=== PATIENT | female | born 1945 | race Caucasian/White ===

== ENCOUNTER 2019-11-12 17:53 | Inpatient (IN) | payer MEDICARE, SELFPAY ==
--- NOTE | ~2019-11-12 | CT_ITS ---
EXAMINATION: CT abdomen pelvis w con DATE: 11/12/2019 21:00 INDICATION: Abdominal pain and right groin pain TECHNIQUE: Computed tomography (CT) of the abdomen and pelvis was performed with 100 mL Omnipaque-350 intravenous contrast. Automated exposure control and iterative reconstruction technique were employe d. The dose-length product was 312.69 mGy-cm. COMPARISON: None FINDINGS: Mild emphysema as well as scattered discoid atelectasis/scarring in the bilateral lower lungs. Heart size is normal. Atherosclerotic coronary artery calcification. Small pericardial effusion. No pleural effusion. Gallbladder is dilated to 4.9 cm with prominent surrounding inflammatory stranding cyst wi th acute cholecystitis. There is some discontinuity along the enhancing mucosa of the gallbladder wal l which raises concern for necrosis. I'm and bile duct is dilated to 9 mm and there is mild central i ntrahepatic biliary ductal dilation. Dystrophic calcifications at the head of the pancreas likely seq uela of chronic pancreatitis. No peripancreatic inflammatory stranding to suggest acute pancreatitis. Spleen and bilateral adrenal glands are normal. Bilateral subcentimeter renal cysts. There is some e dematous wall thickening with the colon at the splenic flexure which is likely reactive. No bowel obs truction. The appendix is not visualized. No pericecal inflammatory change to suggest acute appendici tis. Bladder is normal. The uterus is not identified and has likely been surgically resected. Pessary at the vaginal vault. No free intraperitoneal gas or fluid. No pathologically enlarged abdominal or pelvic lymphadenopathy... There is calcified atherosclerosis of the aorta and many of the other arter ies. Moderate lumbar spondylosis. IMPRESSION: 1. Acute cholecystitis with discontinuities in the enhancing mucosa of the gallbladder wall which finley ses concern for mural necrosis. 2. Mild intra and extra hepatic biliary ductal dilation. Reviewed, dictated and finalized at location A. IMPRESSION: 1. Acute cholecystitis with discontinuities in the enhancing mucosa of the gall bladder wall which raises concern for mural necrosis. 2. Mild intra and extra hepatic biliary ductal dilation.
[2019-11-12 18:02] VITALS: BP 99/59; PULSE 67; RESP 17; TEMP 36.3; O2SAT 98
[2019-11-12 19:31] VITALS: BP 98/62; PULSE 103; RESP 14; TEMP 37.8; O2SAT 95
[2019-11-12] MEDS: SODIUM CHLORIDE 0.9% IV 1,000 ML 999 ML IV CONT (19:43)
[2019-11-12 19:48] LABS: Basophils Absolute Auto 0.1 K/mm3 (0.0-0.1); Basophils Percent Auto 0.4 % (0.2-1.2); Eosinophils Absolute Auto 0.1 K/mm3 (0-0.3); Eosinophils Percent Auto 0.8 % (0-4.4); Hematocrit 38.2 % (37.0-47.0); Hemoglobin 12.7 g/dL (12.0-15.0); Immature Granulocyte Absolute 0.08 K/mm3 (0.00-0.031); Immature Granulocyte Percent A 0.5 % (0-0.5); Lymphocytes Absolute Auto 2.35 K/mm3 (0.9-3.2); Lymphocytes Percent Auto 13.7 % (18.3-44.2); Mean Corpuscular HGB Conc 33.2 g/dl (32-36); Mean Corpuscular Hemoglobin 29.5 pg (26-34); Mean Corpuscular Volume 88.6 fl (80-100); Mean Platelet Volume 9.1 fl (7.4-10.4); Monocytes Absolute Auto 1.2 K/mm3 (0.1-0.6); Monocytes Percent Auto 7.2 % (2.6-8.5); Neutrophils Absolute Auto 13.3 K/mm3 (1.3-6.7); Neutrophils Percent Auto 77.4 % (45.5-73.1); Platelet Count Result 300 k/mm3 (150-375); Red Blood Count 4.31 M/mm3 (4.2-5.4); Red Cell Distribution Width 13.4 % (11.5-14.5); White Blood Count 17.1 K/mm3 (4.5-10.0)
[2019-11-12 20:01] LABS: Alanine Aminotransferase 18 U/L (4-35); Alkaline Phosphatase 89 U/L (38-126); Anion Gap 6 mmol/L (8-16); Aspartate Amino Transferase 26 U/L (14-36); Bilirubin,Total 0.6 mg/dL (0.2-1.3); Blood Urea Nitrogen 24 mg/dL (7-17); Calcium 9.1 mg/dL (8.4-10.2); Carbon Dioxide 28 mmol/L (22-30); Chloride 98 mmol/L (98-107); Estimated CRCL calculation 43 ml/min; Estimated Glomerular Filt Rate 54; Glucose 103 mg/dL (65-105); Potassium 3.9 mmol/L (3.4-5.0); Sodium 132 mmol/L (137-145)
[2019-11-12 20:39] LABS: Add Urine Microscopic? YES; Appearance Urine Cloudy (Clear); Bacteria Urine Trace /hpf; Bilirubin Urine Negative (Negative); Blood Urine Negative (Negative); Color Urine Yellow (Yellow); Glucose Urine UA Negative (Negative); Ketones Urine Negative (Negative); Leukocyte Esterase Ur Trace LEU/UL (Negative); Mucus Urine Heavy /lpf; Nitrate Urine Negative (Negative); Protein Urine 1+ mg/dL (Negative); RBC Urine 0-2 /hpf (0-2); Specific Grav Ur 1.017 (1.001-1.035); Squamous Epithelial Cell Urine Moderate /hpf (Few); Urobilinogen Urine Negative mg/dL (<2.0)
--- NOTE | 2019-11-12 20:47 | PC.NURSE ---
Fannie in lab aware of lipase add on.
--- NOTE | 2019-11-12 20:48 | ED.GENADULT ---
HPI - General Adult General Chief complaint: Extremity Injury, Lower Stated complaint: right groin/abd pain Time Seen by Provider: 11/12/19 19:01 Source: patient Mode of arrival: ambulatory Limitations: no limitations History of Present Illness HPI narrative: Patient is a 74-year-old female who presents to emergency department for evaluation of right-sided abdominal pain and discomfort that is been present since Friday noticed it when she got out of bed patient notes that the pain has been persistent and is worse with any activity or movement denies similar occurrence in the past or any recent illness or other complaints and is otherwise resting comfortably in the room upon arrival Related Data Allergies Allergy/AdvReac Type Severity Reaction Status Date / Time No Known Allergies Allergy Verified 11/12/19 18:05 Review of Systems Review of Systems: All systems reviewed & are unremarkable except as noted in HPI and below PMFSH Social History Social History Gender identity (if verbalized by the patient): Female Exam Narrative: Exam Narrative: GENERAL: Well-appearing, well-nourished, and in no acute distress. HEAD: Normocephalic, atraumatic. EYES: PERRLA and EOMI. ENT: Nares clear, no rhinorrhea or epistaxis. Mucous membranes moist. CHEST: Clear to auscultation. No respiratory distress. No wheezes rales or rhonchi HEART: Regular rate and rhythm. No murmur heard. Normal peripheral pulses. ABDOMEN: Soft, right-sided abdominal tenderness with voluntary guarding, nondistended EXTREMITIES: Normal range of motion. No edema. SKIN: Warm, dry, no rash. NEURO: No focal deficits. Alert and oriented x3. Cranial nerves II through XII grossly intact PSYCH: Normal mood and affect. Course Course Emergency Course: Patient in the room aware of the blood work and findings agreeing to stay in hospital as recommended was given fluids pain management and IV antibiotics Consultations Consultation #1: Discussed case with surgeon who will admit the patient Date: 11/12/19 Time: 21:41 Vital Signs Vital signs: Vital Signs Temperature 97.4 F L 11/12/19 18:02 Pulse Rate 67 11/12/19 18:02 Respiratory Rate 17 11/12/19 18:02 Blood Pressure 99/59 L 11/12/19 18:02 Pulse Oximetry 98 11/12/19 18:02 Temperature 98.6 F 11/12/19 21:34 Pulse Rate 103 H 11/12/19 19:31 Respiratory Rate 106 H 11/12/19 21:34 Blood Pressure 110/69 11/12/19 21:34 Pulse Oximetry 90 11/12/19 21:34 Medical Decision Making MDM Narrative Medical decision making narrative: Patient with acute cholecystitis in the room resting comfortably no distress pain well controlled given fluids and antibiotics agreeing to stay in hospital Vital Signs Vital Signs: Vital Signs Temperature 97.4 F L 11/12/19 18:02 Pulse Rate 67 11/12/19 18:02 Respiratory Rate 17 11/12/19 18:02 Blood Pressure 99/59 L 11/12/19 18:02 Pulse Oximetry 98 11/12/19 18:02 Temperature 98.6 F 11/12/19 21:34 Pulse Rate 103 H 11/12/19 19:31 Respiratory Rate 106 H 11/12/19 21:34 Blood Pressure 110/69 11/12/19 21:34 Pulse Oximetry 90 11/12/19 21:34 Lab Data Result diagrams: 11/12/19 19:38 11/12/19 19:38 Labs: Lab Results 11/12/19 11/12/19 11/12/19 Range/Units 19:38 19:38 19:38 WBC 17.1 H (4.5-10.0) K/mm3 RBC 4.31 (4.2-5.4) M/mm3 Hgb 12.7 (12.0-15.0) g/dL Hct 38.2 (37.0-47.0) % MCV 88.6 (80-100) fl MCH 29.5 (26-34) pg MCHC 33.2 (32-36) g/dl RDW 13.4 (11.5-14.5) % Plt Count 300 (150-375) k/mm3 MPV 9.1 (7.4-10.4) fl Immature Gran % (Auto) 0.5 (0-0.5) % Neut % (Auto) 77.4 H (45.5-73.1) % Lymph % (Auto) 13.7 L (18.3-44.2) % [place] % (Auto) 7.2 (2.6-8.5) % Eos % (Auto) 0.8 (0-4.4) % Baso % (Auto) 0.4 (0.2-1.2) % Lymph # (Auto) 2.35 (0.9-3.2) K/mm3 [place] # (Auto) 1.2 H (0.1-0.
[2019-11-12 20:56] LABS: Lipase 26 U/L (23-300)
--- NOTE | 2019-11-12 20:58 | PC.NURSE ---
Pt complains of discomfort on right side of groin that radiates to the belly butt region, rates pain a 5/10. MD notified, new orders given.
[2019-11-12 21:34] VITALS: BP 110/69; RESP 106; TEMP 37; O2SAT 90
[2019-11-12 22:47] VITALS: BP 110/69; PULSE 106; O2SAT 90
--- NOTE | 2019-11-12 22:50 | ADMGEN ---
This patient, Sandy Kaur, was admitted to 2 Medical Room 242-01 @ 7550. Patient/family oriented to hospital policies and general routines including ID bracelet, bed and alarms, visiting hours, pain management, procedures, bathroom and other care routines, personal items, smoking policy, room service/diet, and visiting hours. Valuables list has been completed. Information on how to activate the Rapid Response Team has been discussed. Patient/Family are encouraged to report perceived risks to care and to ask questions if they do not understand what they are told or what they should do.
[2019-11-12 22:57] VITALS: BP 103/58; PULSE 97; RESP 20; TEMP 35.9; O2SAT 97
[2019-11-12 22:58] VITALS: BMI 22.5
[2019-11-12] MEDS: LACTATED RINGERS 1,000 ML 125 ML IV CONT (23:27)
[2019-11-12] MEDS: FAMOTIDINE 20 MG/2 ML VIAL IV PUSH (23:27)
[2019-11-13] MEDS: MORPHINE SULFATE 4 MG/ML INJ IV PUSH ×2 (03:42→16:37)
[2019-11-13 04:00] VITALS: BP 135/65; PULSE 110; RESP 20; TEMP 36.6; O2SAT 98
[2019-11-13 05:40] LABS: Basophils Percent Auto 0.1 % (0.2-1.2); Eosinophils Absolute Auto 0.2 K/mm3 (0-0.3); Eosinophils Percent Auto 1.4 % (0-4.4); Hemoglobin 11.7 g/dL (12.0-15.0); Immature Granulocyte Absolute 0.06 K/mm3 (0.00-0.031); Immature Granulocyte Percent A 0.4 % (0-0.5); Lymphocytes Absolute Auto 1.75 K/mm3 (0.9-3.2); Lymphocytes Percent Auto 12.3 % (18.3-44.2); Mean Corpuscular HGB Conc 33.4 g/dl (32-36); Mean Corpuscular Hemoglobin 29.6 pg (26-34); Mean Corpuscular Volume 88.6 fl (80-100); Mean Platelet Volume 9.4 fl (7.4-10.4); Monocytes Absolute Auto 1.1 K/mm3 (0.1-0.6); Monocytes Percent Auto 7.8 % (2.6-8.5); Neutrophils Absolute Auto 11.1 K/mm3 (1.3-6.7); Platelet Count Result 273 k/mm3 (150-375); Red Blood Count 3.95 M/mm3 (4.2-5.4); Red Cell Distribution Width 13.3 % (11.5-14.5); White Blood Count 14.3 K/mm3 (4.5-10.0)
[2019-11-13 05:56] LABS: Alanine Aminotransferase 15 U/L (4-35); Albumin Level 3.4 g/dL (3.5-5.1); Alkaline Phosphatase 84 U/L (38-126); Anion Gap 6 mmol/L (8-16); Aspartate Amino Transferase 20 U/L (14-36); Bilirubin,Total 0.8 mg/dL (0.2-1.3); Blood Urea Nitrogen 15 mg/dL (7-17); Calcium 8.5 mg/dL (8.4-10.2); Carbon Dioxide 25 mmol/L (22-30); Chloride 102 mmol/L (98-107); Estimated CRCL calculation 52 ml/min; Estimated Glomerular Filt Rate > 60; Glucose 90 mg/dL (65-105); Potassium 3.5 mmol/L (3.4-5.0); Sodium 133 mmol/L (137-145)
[2019-11-13 08:00] VITALS: BP 123/75; PULSE 106; RESP 18; TEMP 37.1; O2SAT 97
[2019-11-13] MEDS: LACTATED RINGERS 1,000 ML 125 ML IV CONT ×3 (08:57→23:30)
[2019-11-13] MEDS: FAMOTIDINE 20 MG/2 ML VIAL IV PUSH ×2 (08:58→20:17)
--- NOTE | 2019-11-13 09:43 | PM.IMHP ---
H&P: HPI History of Present Illness Date/Time: 11/13/19 Chief complaint: Acute cholecystitis Narrative: Sandy Kaur is a 74 year old female presenting c 1 wk h/o progressively worsening RUQ/epigastric abd pain. Pt denies previous episodes. Pt reports pain first start on Friday and has progressively worsened. Pt reports pain is dull, constant c occasional sharp, stabbing pain. Pt reports largely normal appetite and bowel fxn. Pt denies any f/c, N/V. Pt denies any relieving, aggravating factors. Review of Systems Constitutional: Constitutional: Denies anorexia, Denies chills, Denies fatigue, Denies headache(s), Denies lethargy, Denies malaise, Denies poor appetite, Denies weakness, Denies weight gain and Denies weight loss Eyes: Eyes: Reports no additional eye complaints and Denies change in vision ENT: Reports Normal hearing present, Denies dysphagia, Denies headache(s), Denies hearing loss and Denies sore throat Cardiovascular: Cardiovascular: Denies chest pain, Denies palpitations and Denies dyspnea Respiratory: Respiratory: Denies cough and Denies dyspnea Gastrointestinal: Gastrointestinal: Reports abdominal pain, Denies change in stool character, Denies constipation, Denies diarrhea, Denies nausea and Denies vomiting Genitourinary: Genitourinary: Denies urinary frequency, Denies dysuria and Denies urinary urgency Musculoskeletal: Musculoskeletal: Reports no additional musculoskeletal complaints Integumentary/Breasts: Skin/Breast: Denies pruritus, Denies lesions and Denies wounds Neurologic: Denies confusion and Denies headache(s) Psychiatric: Psychiatric: Reports no additional psychiatric complaints and Denies confusion Endocrine: Endocrine: Reports no additional endocrine complaints, Denies fatigue and Denies palpitations Hematologic/Lymphatic: Hematologic/Lymphatic: Reports no additional hematologic/lymphatic complaints Allergic/Immunologic: Allergic/Immunologic: Reports no additional allergic/immunologic complaints [facility] Family History Family History Mother Diabetes mellitus Father Acute myocardial infarction Social History Social History Smoking packs per day: 0.5 Smoking cigarettes per day: 10.0 Smoking status: Current every day smoker Additional smoking assessment comments: started smoking in her 20's Alcohol intake: never Substance use: never Substance use type: does not use Gender identity (if verbalized by the patient): Female Spiritual care concerns: No Meds Home Medications and Allergies Home Medications Medication Instructions Recorded Confirmed Type amitriptyline 50 mg PO HS 11/12/19 11/12/19 History amlodipine 5 mg PO DAILY 11/12/19 11/12/19 History calcium carbonate [Calcium 500] 500 mg PO DAILY 11/12/19 11/12/19 History cholecalciferol (vitamin D3) 125 mcg PO DAILY 11/12/19 11/12/19 History gabapentin 100 mg PO TID PRN 11/12/19 11/12/19 History gabapentin 300 mg PO HS 11/12/19 11/12/19 History hydrocodone-acetaminophen 1 tablet PO Q8H PRN 11/12/19 11/12/19 History Allergies Allergy/AdvReac Type Severity Reaction Status Date / Time No Known Allergies Allergy Verified 11/12/19 18:05 Vital Signs Vital Signs - 24 hr 11/12/19 18:02 11/12/19 19:31 11/12/19 21:34 Temperature 36.3 C L 37.8 C H 37.0 C Pulse Rate 67 103 H Respiratory Rate 17 14 106 H Blood Pressure 99/59 L 98/62 L 110/69 Pulse Oximetry 98 95 90 11/12/19 22:47 11/12/19 22:57 11/13/19 04:00 Temperature 35.9 C L 36.6 C Pulse Rate 106 H 97 110 H Respiratory Rate 20 20 Blood Pressure 110/69 103/58 L 135/65 Pulse Oximetry 90 97 98 Exam Const: General: cooperative, healthy appearing, no acute distress and well developed; No confusion Orientation/consciousness: patient oriented x3 and No confusion HENMT: Head: normal to inspection, normocephalic and atraumatic Mouth:
--- NOTE | 2019-11-13 11:16 | WPDANESEPP ---
Anes - Eval Pre Procedure Procedure: lap cholecystectomy Date/Time: 11/13/19 11:16 Pre Op Diagnosis: Acute cholecystitis Patient Data Age: 74 Gender: F Height: 1.7 m Weight: 65.2 kg Last Vital Signs Temp 37.1 C 11/13/19 08:00 Pulse 106 H 11/13/19 08:00 Resp 18 11/13/19 08:00 BP 123/75 11/13/19 08:00 Pulse Ox 97 11/13/19 08:00 Allergies Allergy/AdvReac Type Severity Reaction Status Date / Time No Known Allergies Allergy Verified 11/12/19 18:05 Home Medications Medication Instructions Recorded Confirmed Type amitriptyline 50 mg PO HS 11/12/19 11/12/19 History amlodipine 5 mg PO DAILY 11/12/19 11/12/19 History calcium carbonate [Calcium 500] 500 mg PO DAILY 11/12/19 11/12/19 History cholecalciferol (vitamin D3) 125 mcg PO DAILY 11/12/19 11/12/19 History gabapentin 100 mg PO TID PRN 11/12/19 11/12/19 History gabapentin 300 mg PO HS 11/12/19 11/12/19 History hydrocodone-acetaminophen 1 tablet PO Q8H PRN 11/12/19 11/12/19 History Laboratory Tests 11/12/19 11/12/19 11/12/19 19:38 19:38 19:38 WBC 17.1 K/mm3 H K/mm3 (4.5-10.0) RBC 4.31 M/mm3 M/mm3 (4.2-5.4) Hgb 12.7 g/dL g/dL (12.0-15.0) Hct 38.2 % % (37.0-47.0) MCV 88.6 fl fl (80-100) MCH 29.5 pg pg (26-34) MCHC 33.2 g/dl g/dl (32-36) RDW 13.4 % % (11.5-14.5) Plt Count 300 k/mm3 k/mm3 (150-375) MPV 9.1 fl fl (7.4-10.4) Immature Gran % (Auto) 0.5 % % (0-0.5) Neut % (Auto) 77.4 % H % (45.5-73.1) Lymph % (Auto) 13.7 % L % (18.3-44.2) [place] % (Auto) 7.2 % % (2.6-8.5) Eos % (Auto) 0.8 % % (0-4.4) Baso % (Auto) 0.4 % % (0.2-1.2) Lymph # (Auto) 2.35 K/mm3 K/mm3 (0.9-3.2) [place] # (Auto) 1.2 K/mm3 H K/mm3 (0.1-0.6) Eos # (Auto) 0.1 K/mm3 K/mm3 (0-0.3) Baso # (Auto) 0.1 K/mm3 K/mm3 (0.0-0.1) Abs Immat Gran (auto) 0.08 K/mm3 H K/mm3 (0.00-0.031) Absolute Neuts (auto) 13.3 K/mm3 H K/mm3 (1.3-6.7) Absolute Nucleated RBC 0.0 K/mm3 K/mm3 (0.0-0.012) Nucleated RBC % 0.0 % % (0.0-0.2) Sodium 132 mmol/L L mmol/L (137-145) Potassium 3.9 mmol/L mmol/L (3.4-5.0) Chloride 98 mmol/L mmol/L (98-107) Carbon Dioxide 28 mmol/L mmol/L (22-30) Anion Gap 6 mmol/L L mmol/L (8-16) BUN 24 mg/dL H mg/dL (7-17) Creatinine 1.00 mg/dL mg/dL (0.7-1.0) Estim Creat Clear Calc 43 ml/min ml/min Estimated GFR 54 L (59 - ) Glucose 103 mg/dL mg/dL (65-105) Calcium 9.1 mg/dL mg/dL (8.4-10.2) Total Bilirubin 0.6 mg/dL mg/dL (0.2-1.3) AST 26 U/L U/L (14-36) ALT 18 U/L U/L (4-35) Alkaline Phosphatase 89 U/L U/L (38-126) Total Protein 7.0 g/dL g/dL (6.3-8.2) Albumin 4.0 g/dL g/dL (3.5-5.1) Lipase 26 U/L U/L (23-300) Urine Color Urine Appearance Urine pH Ur Specific [place] Urine Protein Urine Glucose (UA) Urine Ketones Ur Blood (Man) Urine Nitrate Urine Bilirubin Urine Urobilinogen Leukocyte Esterase Rfl Urine RBC Urine WBC Ur Squamous Epith Cells Urine Bacteria Hyaline Casts Granular Casts Urine Mucus 11/12/19 11/13/19 11/13/19 20:26 04:45 04:45 WBC 14.3 K/mm3 H K/mm3 (4.5-10.0) RBC 3.95 M/mm3 L M/mm3 (4.2-5.4) Hgb 11.7 g/dL L g/dL (12.0-15.0) Hct 35.0 % L % (37.0-47.0) MCV 88.6 fl fl (80-100) MCH 29.6 pg pg (26-34) MCHC 33.4 g/dl g/dl (32-36) RDW 13.3 % % (11.5-14.5)
[2019-11-13 12:00] VITALS: BP 108/82; PULSE 102; RESP 18; TEMP 37.1; O2SAT 94
[2019-11-13 16:00] VITALS: BP 139/71; PULSE 102; RESP 18; TEMP 37.1; O2SAT 95
[2019-11-13 20:00] VITALS: BP 129/69; PULSE 100; RESP 20; TEMP 36.6; O2SAT 93
[2019-11-14] VITALS (16 sets, daily range): BP systolic 114–139; BP diastolic 56–75; PULSE 81–108; RESP 15–23; TEMP 36.4–37; O2SAT 92–99
[2019-11-14 05:11] LABS: Hematocrit 35.8 % (37.0-47.0); Hemoglobin 12.1 g/dL (12.0-15.0); Mean Corpuscular HGB Conc 33.8 g/dl (32-36); Mean Corpuscular Hemoglobin 29.8 pg (26-34); Mean Corpuscular Volume 88.2 fl (80-100); Mean Platelet Volume 9.4 fl (7.4-10.4); Platelet Count Result 308 k/mm3 (150-375); Red Blood Count 4.06 M/mm3 (4.2-5.4); Red Cell Distribution Width 13.2 % (11.5-14.5); White Blood Count 13.4 K/mm3 (4.5-10.0)
[2019-11-14] MEDS: LACTATED RINGERS 1,000 ML 125 ML IV CONT ×2 (05:16→15:46)
[2019-11-14 05:31] LABS: Alanine Aminotransferase 27 U/L (4-35); Albumin Level 3.6 g/dL (3.5-5.1); Alkaline Phosphatase 132 U/L (38-126); Anion Gap 6 mmol/L (8-16); Aspartate Amino Transferase 31 U/L (14-36); Bilirubin,Total 0.8 mg/dL (0.2-1.3); Blood Urea Nitrogen 7 mg/dL (7-17); Calcium 8.6 mg/dL (8.4-10.2); Carbon Dioxide 28 mmol/L (22-30); Chloride 102 mmol/L (98-107); Estimated CRCL calculation 68 ml/min; Estimated Glomerular Filt Rate > 60; Glucose 114 mg/dL (65-105); Potassium 2.9 mmol/L (3.4-5.0); Sodium 136 mmol/L (137-145)
--- NOTE | 2019-11-14 07:29 | WPDANESEFPP ---
Anes - Eval Final PreProcedure Day of Procedure 11/14/19 07:29 Patient weight: normal Heart: regular rate and rhythm Lungs: normal air movement Airway: Mallampati scale class II Neurological: alert and oriented Last oral intake: >/= 8 hours ASA classification: III Emergent: no Anesthetic plan: proceed Anesthesia type and monitoring: general ETT Informed Consent: The patient's anesthetic plan and its attendant risks and benefits were discussed with the patient/family/POA. Questions were solicited and answers provided to the satisfaction of the patient/family/POA.
--- NOTE | 2019-11-14 08:22 | PC.NURSE ---
To OR per bed, IV SL. Report given to Cynthia.
[2019-11-14] MEDS: BUPIVACAINE/EPINEPHRINE 0.5% 30 ML VIAL INFILTRATE (08:49)
--- NOTE | 2019-11-14 09:28 | P.OP_ITS ---
Procedure Note - Detailed Date of procedure: 11/14/19 Pre-op diagnosis: Acute cholecystitis Post-op diagnosis: other (Acute gangrenous cholecystitis) Procedure performed: laparoscopic cholecystectomy Description of procedure: The patient was taken to the operating room placed in the supine position. After adequate induction of general anesthesia, the patient was prepped and draped in normal sterile fashion. A time-out was then performed to verify the patient's identity as well as the procedure being performed. I then made a 5 mm incision in the infraumbilical region. Through this, a Veress needle was placed into the peritoneal cavity and CO2 gas was then insufflated. After adequate pneumoperitoneum was achieved, the Veress needle was removed and a 5 mm trocar was placed through this incision. I then placed the laparoscope through this trocar site and under direct visualization placed a further 12 mm subxiphoid port as well as 2 additional 5 mm ports in the right upper abdomen. The gallbladder was then identified and was noted to be extremely inflamed and friable. The gallbladder was covered by omentum and upon dissecting this off, there was portions of the GB wall that were noted to be gangrenous, necrotic. Given the inflammation, I did decompress the GB with the suction device. Thick bile, as well as numerous stones were drained from the GB. I was able to place a grasper at the dome of the gallbladder and this was retracted anterior and cephalad up over the liver. A 2nd retractor was then placed at the infundibulum and retracted laterally, this allowed visualization of the triangle of [place]. Of note, the GB was very friable and continued to tear during retraction, dissection. I was able to visualize the cystic duct in its entirety from its proximal insertion into the gallbladder, to its distal j unction with the common hepatic/common bile duct junction. At this point, I carefully skeletonized the proximal cystic duct with the [place] dissector. I then clipped and transected the proximal cystic duct. Next I visualized the cystic artery. Again the artery was skeletonized, clipped, and transected. I then used the Bovie cautery to take down the peritoneal attachments of the gallbladder off the liver bed. Once the gallbladder specimen was completely detached, an endo-pouch was placed through the 12 mm port site. I then placed the gallbladder specimen into the Endo pouch and removed the endo-pouch from the 12 mm port site. The specimen will now be sent to pathology for further review. I then copiously irrigated the right upper quadrant. Hemostasis was noted in the liver bed, the clips were noted to be in good position on both the cystic duct stump and the cystic artery stump. Given the amount of inflammation, I did place some hemostatic powder in the liver bed. No other pathology was noted in the right upper quadrant. I then moved the laparoscope to the subxiphoid port. No iatrogenic injury or other pathology was noted in the lower abdomen. At this point, the abdomen was desufflated and all ports removed. The fascia of the 12 mm subxiphoid port was closed with a 0 Vicryl figure of 8 suture. All port sites were then closed with 4.O Monocryl subcuticular sutures. Dermabond was placed on each incision. The patient tolerated the procedure well, was extubated in the operating room postoperative and will be transferred to the recovery room in stable condition. Implants: none Anesthesia: GETA Surgeon: Sangita Daniels MD Estimated blood loss (mL): 20 Drains: No Packing: No Pathology: yes Complications: No immediate complications Condition: stable Disposition: PACU Findings: acute gangrenous cholecystitis, cholelithiasis
[2019-11-14] MEDS: LACTATED RINGERS 1,000 ML 30 ML IV CONT ×2 (09:29→09:30)
--- NOTE | 2019-11-14 10:42 | PC.NURSE ---
Returned from OR per bed. Report received from Cynthia
[2019-11-14] MEDS: FAMOTIDINE 20 MG/2 ML VIAL IV PUSH ×2 (10:43→20:56)
[2019-11-14] MEDS: MORPHINE SULFATE 4 MG/ML INJ IV PUSH (12:50)
[2019-11-14] MEDS: AMITRIPTYLINE HCL 25 MG TABLET 50 MG PO (20:56)
[2019-11-14] MEDS: GABAPENTIN 300 MG CAPSULE PO (20:56)
[2019-11-15] MEDS: LACTATED RINGERS 1,000 ML 125 ML IV CONT ×2 (00:33→09:32)
[2019-11-15 02:00] VITALS: BP 126/74; PULSE 87; RESP 16; TEMP 36.2; O2SAT 95
[2019-11-15 05:04] VITALS: BP 130/60; PULSE 60; RESP 16; TEMP 36.4; O2SAT 96
[2019-11-15 05:45] LABS: Hematocrit 37.5 % (37.0-47.0); Hemoglobin 12.4 g/dL (12.0-15.0); Mean Corpuscular HGB Conc 33.1 g/dl (32-36); Mean Corpuscular Hemoglobin 29.5 pg (26-34); Mean Corpuscular Volume 89.1 fl (80-100); Mean Platelet Volume 9.3 fl (7.4-10.4); Platelet Count Result 320 k/mm3 (150-375); Red Blood Count 4.21 M/mm3 (4.2-5.4); Red Cell Distribution Width 13.3 % (11.5-14.5); White Blood Count 8.9 K/mm3 (4.5-10.0)
[2019-11-15 05:57] LABS: Alanine Aminotransferase 27 U/L (4-35); Albumin Level 3.2 g/dL (3.5-5.1); Alkaline Phosphatase 116 U/L (38-126); Anion Gap 5 mmol/L (8-16); Aspartate Amino Transferase 26 U/L (14-36); Bilirubin,Total 0.5 mg/dL (0.2-1.3); Blood Urea Nitrogen 5 mg/dL (7-17); Calcium 8.3 mg/dL (8.4-10.2); Carbon Dioxide 32 mmol/L (22-30); Chloride 100 mmol/L (98-107); Estimated CRCL calculation 68 ml/min; Estimated Glomerular Filt Rate > 60; Glucose 105 mg/dL (65-105); Potassium 2.8 mmol/L (3.4-5.0); Sodium 137 mmol/L (137-145)
[2019-11-15] MEDS: POTASSIUM CHLORIDE 20 MEQ TABLET 40 MEQ PO (06:55)
--- NOTE | 2019-11-15 07:10 | WPDANESPN ---
Anes - Prog Note Post-Op Date/Time: 11/15/19 07:10 Cardiovascular status: normal Respiratory status: normal Airway patency: baseline Mental status: baseline Post-Op hydration status: normal Vital Signs: Last Vital Signs Temp 36.4 C L 11/15/19 05:04 Pulse 60 11/15/19 05:04 Resp 16 11/15/19 05:04 BP 130/60 11/15/19 05:04 Pulse Ox 96 11/15/19 05:04 I/O: Intake & Output 11/14/19 11/14/19 11/15/19 15:59 23:59 07:59 Intake Total 2110 1580 450 Output Total 350 600 Balance 2110 1230 -150 Laboratory Tests 11/15/19 04:47 11/15/19 04:47 11/15/19 11/15/19 04:47 04:47 WBC 8.9 RBC 4.21 Hgb 12.4 Hct 37.5 MCV 89.1 MCH 29.5 MCHC 33.1 RDW 13.3 Plt Count 320 MPV 9.3 Sodium 137 Potassium 2.8 L* Chloride 100 Carbon Dioxide 32 H Anion Gap 5 L BUN 5 L Creatinine 0.60 L Estim Creat Clear Calc 68 Estimated GFR > 60 Glucose 105 Calcium 8.3 L Total Bilirubin 0.5 AST 26 ALT 27 Alkaline Phosphatase 116 Total Protein 6.0 L Albumin 3.2 L Post-procedural complaints: none Patient Feedback: Patient satisfied with anesthetic care.
--- NOTE | 2019-11-15 09:30 | PC.NURSE ---
Patient requesting pain medication. [place] ordered q6hr. Patient prefers not to take morphine and rating her pain 6/10. Called Dr. Daniels and received orders to change [place] to q4hr. Went to room and offered pain med to patient and she states the pain is improved since she got up to the chair. Patient requesting to ambulate in the hallway as well.
[2019-11-15] MEDS: FAMOTIDINE 20 MG/2 ML VIAL IV PUSH (09:34)
[2019-11-15] MEDS: CHOLECALCIFEROL 1,000 UNITS TABLET 5000 UNITS PO (09:34)
[2019-11-15] MEDS: CALCIUM CARBONATE (OSCAL) 500 MG TABLET PO (09:34)
[2019-11-15] MEDS: amLODIPine BESYLATE 5 MG TABLET PO (09:34)
[2019-11-15 10:00] VITALS: BP 139/60; PULSE 96; RESP 18; TEMP 36.6; O2SAT 96
--- NOTE | 2019-11-15 11:30 | PM.PNGS ---
Progress Note: A&P Assessment and Plan (1) Acute gangrenous cholecystitis: Code(s): K81.0 - Acute cholecystitis Status: Acute Assessment and Plan: doing well, cont encourage OOB/IS, pain control, anticipate home tomorrow Subjective Subjective Date/Time Seen: 11/15/19 11:30 feels better, some incisional soreness, reports she is still quite weak Review of Systems Constitutional: Constitutional: Denies chills, Reports fatigue, Reports lethargy and Reports weakness Cardiovascular: Cardiovascular: Denies chest pain and Denies palpitations Respiratory: Respiratory: Denies dyspnea Gastrointestinal: Gastrointestinal: Reports abdominal pain, Denies constipation, Denies diarrhea, Denies nausea and Denies vomiting Exam Const: General: no acute distress Resp: Auscultation: clear to auscultation bilaterally Cardio: Rate: regular rate Rhythm: regular rhythm GI: Other: S, sl dist, ilya TTP, incisions C/D/I Objective Data Vital Signs Vital Signs: Vital Signs - 24 hr 11/14/19 11:35 11/14/19 12:35 11/14/19 14:05 Temperature 36.6 C 36.8 C 36.6 C Pulse Rate 83 85 81 Respiratory Rate 17 15 17 Blood Pressure 125/72 131/67 114/64 Pulse Oximetry 94 95 95 11/14/19 15:31 11/14/19 18:00 11/14/19 20:00 Temperature 36.5 C 36.6 C Pulse Rate 96 94 Respiratory Rate 15 20 Blood Pressure 129/75 139/67 Pulse Oximetry 97 97 95 11/15/19 02:00 11/15/19 05:04 11/15/19 10:00 Temperature 36.2 C L 36.4 C L 36.6 C Pulse Rate 87 60 96 Respiratory Rate 16 16 18 Blood Pressure 126/74 130/60 139/60 Pulse Oximetry 95 96 96 Intake/Output Intake/Output: Intake & Output 11/12/19 11/13/19 11/14/19 11/15/19 23:59 23:59 23:59 23:59 Intake Total 1150 4050 4740 1690 Output Total 350 600 Balance 1150 4050 4390 1090 Meds/Results Medications: Active Medications Generic Name Dose Route Start Last Admin Trade Name Freq PRN Reason Stop Dose Admin Hydrocodone Bitart/Acetaminophen 1 tab 11/15/19 10:00 [place] 5-325 Mg PO Q4H PRN Pain Rated 4-6 Amitriptyline HCl 50 mg 11/14/19 21:00 11/14/19 20:56 Elavil PO 50 mg HS RUPINDER Administration Amlodipine Besylate 5 mg 11/15/19 09:00 11/15/19 09:34 Norvasc PO 5 mg DAILY RUPINDER Administration Calcium Carbonate 500 mg 11/15/19 09:00 11/15/19 09:34 Oscal 500 Mg PO 500 mg DAILY RUPINDER Administration Famotidine 20 mg 11/12/19 22:00 11/15/19 09:34 Pepcid Iv IV PUSH 20 mg Q12HR RUPINDER Administration Gabapentin 100 mg 11/14/19 10:29 Neurontin PO TID PRN Restless Leg(S) Gabapentin 300 mg 11/14/19 21:00 11/14/19 20:56 Neurontin PO 300 mg HS RUPINDER Administration Piperacillin/Tazobactam/Dextrose 3.375 gm in 50 mls @ 100 mls/hr 11/13/19 04:30 11/15/19 06:20 Zosyn 3.375 Gm/D5w 50ml Pm IVPB Infused Q6HR RUPINDER Infusion Morphine Sulfate 4 mg 11/12/19 21:43 11/14/19 12:50 Morphine Sulfate Inj IV PUSH 4 mg Q2H PRN Administration Pain Rated 7-10 Ondansetron HCl 4 mg 11/12/19 21:43 Zofran Inj IV PUSH Q4H PRN Nausea Vitamin D 5,000 units 11/15/19 09:00 11/15/19 09:34 Vitamin D PO 5,000 units DAILY RUPINDER Administration Radiology Results: ITS Impressions Abdomen/Pelvis CT 11/12/19 21:05 IMPRESSION: 1. Acute cholecystitis with discontinuities in the enhancing mucosa of the gallbladder wall which raises concern for mural necrosis. 2. Mild intra and extra hepatic biliary ductal dilation. Labs Labs: Laboratory Results - last 24 hr 11/15/19 11/15/19 04:47 04:47 WBC 8.9 RBC 4.21 Hgb 12.4 Hct 37.5 MCV 89.1 MCH 29.5 MCHC 33.1 RDW 13.3 Plt Count 320 MPV 9.3 Sodium 137 Potassium 2.8 L* Chloride 100 Carbon Dioxide 32 H Anion Gap 5 L BUN 5 L Creatinine 0.60 L Estim Creat Clear Calc 68 Estimated GFR > 60 Glucose 105 Calcium 8.3 L Total Bilirubin 0.5 AST 26 ALT 27 Alkaline Phosp
[2019-11-15 13:47] VITALS: BP 128/69; PULSE 99; RESP 18; TEMP 36.9; O2SAT 95
--- NOTE | 2019-11-15 14:47 | PC.NURSE ---
Patient c/o more pain and distention in abdomen. Abdomen tight and distended. Hypoactive bowel sounds in all quadrants. Patient denies nausea and has been ambulating in hallways and room. Ate about 1/2 of her lunch (low fat diet). Instructed patient not to eat or drink anything else until I can speak with Dr. Daniels. Called Dr. Daniels's office and left message regarding same.
--- NOTE | 2019-11-15 15:04 | PC.NURSE ---
Spoke with Dr. Daniels regarding distended abdomen and c/o more pain and pressure. Notified him that patient has not passed gas yet either. Per Dr. Daniels, patient can take it easy on her diet if she is uncomfortable. Discussed with patient. No new orders received.
[2019-11-15] MEDS: AMITRIPTYLINE HCL 25 MG TABLET 50 MG PO (21:55)
[2019-11-15] MEDS: GABAPENTIN 300 MG CAPSULE PO (21:56)
[2019-11-15 22:00] VITALS: BP 140/89; PULSE 102; RESP 18; TEMP 36.4; O2SAT 96
[2019-11-16 02:00] VITALS: BP 115/57; PULSE 95; RESP 18; TEMP 36.9; O2SAT 96
[2019-11-16 06:00] VITALS: BP 120/77; PULSE 100; RESP 18; TEMP 36.4; O2SAT 96
[2019-11-16] MEDS: CALCIUM CARBONATE (OSCAL) 500 MG TABLET PO (08:49)
[2019-11-16] MEDS: CHOLECALCIFEROL 1,000 UNITS TABLET 5000 UNITS PO (08:49)
[2019-11-16] MEDS: GABAPENTIN 100 MG CAPSULE PO (08:49)
[2019-11-16] MEDS: amLODIPine BESYLATE 5 MG TABLET PO (08:49)
[2019-11-16 10:00] VITALS: BP 133/77; PULSE 93; RESP 14; TEMP 36.7; O2SAT 95
--- NOTE | 2019-11-16 13:06 | PM.DS ---
DS: Admitting Diagnosis Admitting Diagnosis Admitting Diagnosis: Acute cholecystitis DS: Discharge Diagnosis Discharge Diagnosis (1) Acute gangrenous cholecystitis: Code(s): K81.0 - Acute cholecystitis Status: Acute Assessment and Plan: s/p lap cholecystectomy on 11/13, doing well, await path, home c local wound care instructions and po analgesia DS: Summary Hospital Course Reason for hospitalization: acute gangrenous cholecystitis Hospital Course: Pt presented to ED c/o one wk upper abd pain assoc c nausea. Workup in ED including imaging was significant for acute cholecystitis c poss gangrenous changes. Pt admitted and started on IV abx. Upon evaluation, it was decided she would need urgent cholecystectomy. Pt taken on 11/13 for lap brady and found to have gangrenous cholecystitis, please see op report for full details. Postop, pt back to floor s issue. Over next few days, pt felt much improved and was jon diet and having bowel fxn by time of dc. Pt incisions healing well and pain well controlled c po analgesia. Status at Discharge Functional status at discharge: independent ambulation Overall status at discharge: patient is progressing back to baseline Time Spent with Patient Time attestation: Total time spent providing and/or coordinating discharge services: Time spent: Less than 30 minutes Exam Const: General: no acute distress Limitations: no limitations Resp: Auscultation: clear to auscultation bilaterally Cardio: Rate: regular rate Rhythm: regular rhythm GI: Other: S, sl dist, ilya TTP, incisions C/D/I DS: Data Data Completed and Pending Pending studies at discharge: Pending at discharge 11/14/19 08:47 Surgical [PTH] Routine Discharge Plan Discharge Attending physician on discharge: Sangita Daniels Discharging Clinician: Sangita Daniels Anticipated Discharge Date/Time: 11/16/19 13:11 Patient Disposition: Home, Self-Care Activity: may shower Diet: as tolerated Wound Care Instructions: follow printed instructions Discharge Instructions: DISCHARGE INSTRUCTION SHEET FOR HERNIA, GALLBLADDER AND APPENDIX SURGERIES DR. DANIELS PATIENT TO TAKE HOME 1. May shower in 24 hours, no soaking in bath x 2weeks. 2. Call office for: Wound increasingly painful or bleeding Vomiting Fever of greater than 101 degrees 3. If no bowel movement for three days, take 1 oz. (30 ml) Milk of Magnesia or MiraLax 17g 1 to 2 times daily. 4. No heavy lifting > 10-15 pounds x weeks for hernia repairs and 2 weeks for laparoscopic cholecystectomy or appendectomy. 5. No driving for 3 days or while taking narcotic pain medications. 6. Ice to surgical site for 48 hours (30 min on, then 30 min off). 7. Up walking 10-30 minutes three times per day. 8. Resume previous home medications. 9. Follow-up 10-14 days in office for wound check or as previously scheduled. ([id number]) 10. Oral pain medications prescription to be sent to pharmacy. Take Tylenol 500mg every 6 hours and Ibuprofen 600mg every 6 hours for the first 2 days, then as needed. 11. NUTRITION: Start out by drinking fluids and increase your diet as tolerated. If you experience nausea, try dry toast, crackers, and 7-UP. If nausea or vomiting persists, contact your surgeon?s office. 12. Gallbladders-Low Fat Diet for 2 weeks (send care note of low fat diet) 13. Inguinal Hernias-wear scrotal support for 48 hours 14. Abdominal Hernias-if sent home with abdominal binder, wear for the first 2 weeks (may remove to shower or at night to sleep).
== END 2019-11-16 14:55 | disposition home or self-care (01) | DRG 419 ==
LOC: ANHED 21:45 → ANH2MED 21:58
PROVIDERS: Emergency Medicine Emergency Medical Services; Admitting Provider Surgery; Emergency Provider Emergency Medicine; Visit Provider Surgery
PROC: 0FT44ZZ Resection of Gallbladder, Percutaneous Endoscopic Approach (ICD-10-PCS; CPT 47562; principal; 2019-11-14 10:00)
DX: K80.00 Calculus of gallbladder with acute cholecystitis without obstruction (principal); K82.A1 Gangrene of gallbladder in cholecystitis; I10 Essential (primary) hypertension; F17.210 Nicotine dependence, cigarettes, uncomplicated
CPT/HCPCS: 36415; 74177; 80053; 81001; 83690; 85025; 85027; 88304; 96361; 96365; 96375; 99285; A9270; G0378; J0131; J2250; J2270; J2405; J2543; J2704; J2710; J3480; J7030; J7120; Q9967

== ENCOUNTER → 2020-06-08 12:18 | Outpatient (CLI) | payer MEDICARE, SELFPAY ==
--- NOTE | ~2020-06-08 | DEXA_ITS ---
Bone Density Report Name: Sandy Kaur Age: 74 Sex: Female Ethnicity: White Date of : 1945 Indication: postmenopausal; screening for osteoporosis; height loss; Referring Provider: DANNY ART Study: Bone densitometry was performed. Exam Date: June 08, 2020 Accession number: [id number] Bone Density: Region BMD T-score Z-score Classification AP Spine (L1, L2, L4) 0.919 -1.0 1.3 Normal Femoral Neck (Left) 0.885 0.3 2.4 Normal Total Hip (Left) 0.811 -1.1 0.7 Osteopenia Femoral Neck (Right) 0.829 -0.2 1.9 Normal Total Hip (Right) 0.846 -0.8 1.0 Normal Total Hip Mean 0.829 -1.0 0.9 Normal World Health Organization criteria for BMD impression classify patients as: Normal (T-score at or above -1.0), Osteopenia (T-score between -1.0 and -2.5), or Osteoporosis (T-score at or below -2.5). 10-year Fracture Risk(1): Major Osteoporotic Fracture 7.3% Hip Fracture 1.2% Reported Risk Factors: [place] (), Neck BMD=0.829, BMI=22.8, smoking (1) FRAX(R) Version 3.08. Fracture probability calculated for an untreated patient. Fracture probability may be lower if the patient has received treatment. Clinical Information Provided by Patient: Smokes Has used the following medications: Vitamin D, Calcium Patient maximum height was 68 Menopause Age: 44 Drinks caffeinated beverages Onset of menses at age 11 Number of children 2 Impression: The patient has low bone mass, based on the Left Total Hip T-score. The patient has an estimated ten-year risk of hip fracture of 1.2% and an estimated ten-year risk of major fracture of 7.3%, based on the WHO FRAX algorithm. The patient has risk factors, including: smoking. Discussion: BONE DENSITY IS LOW AT ONE OR MORE SKELETAL SITES. This patient's lowest T-score is low at one or more skeletal sites. It meets the World Health Organization's (WHO) criteria for ?low bone mass? (T-score between -1.0 and -2.5). The patient's 10-year risk of fracture as calculated by FRAX is less than the threshold where pharmacological therapy is recommended by the National Osteoporosis Foundation (NOF). However, all treatment decisions require clinical judgment and consideration of individual patient factors, including patient preferences, comorbidities, previous drug use, risk factors not captured in the FRAX model (e.g., frailty, falls, vitamin D deficiency, increased bone turnover, interval significant decline in bone density) and possible under or overestimation of fracture risk by FRAX. The patient should follow a healthful lifestyle (good nutrition with adequate calcium and vitamin D, and appropriate weight-bearing exercise). Follow-Up: Consider repeating this study in 2 to 3 years to reassess this patient's status, or sooner if there is some new clinical indication
== END ==
PROVIDERS: PCP Internal Medicine; Visit Provider Internal Medicine
DX: Z78.0 Asymptomatic menopausal state (principal); M85.852 Other specified disorders of bone density and structure, left thigh
CPT/HCPCS: 77080

== ENCOUNTER 2020-08-24 14:48 | Outpatient (CLI) | payer MEDICARE, SELFPAY ==
--- NOTE | 2020-08-24 15:16 | ECG_ITS ---
Measurements Intervals [place] Rate: 82 P: 62 WA: 172 QRS: -20 QRSD: 80 T: 67 QT: 351 QTc: 412 Interpretive Statements SINUS RHYTHM FREQUENT ATRIAL PREMATURE COMPLEXES INCOMPLETE RIGHT BUNDLE BRANCH BLOCK BASELINE ARTIFACT- I, II, III, AVR, AVL, AVF ABNORMAL ECG Electronically Signed On 08-24-2020 16:30:08 CDT by Jaleel Del Rio D.O.
[2020-08-24 15:28] LABS: Alanine Aminotransferase 18 U/L (4-35); Albumin Level 4.3 g/dL (3.5-5.1); Alkaline Phosphatase 66 U/L (38-126); Anion Gap 6 mmol/L (8-16); Aspartate Amino Transferase 32 U/L (14-36); Bilirubin,Total 0.4 mg/dL (0.2-1.3); Blood Urea Nitrogen 19 mg/dL (7-17); Calcium 9.3 mg/dL (8.4-10.2); Carbon Dioxide 27 mmol/L (22-30); Chloride 104 mmol/L (98-107); Estimated Glomerular Filt Rate > 60; Glucose 86 mg/dL (65-105); Potassium 4.3 mmol/L (3.4-5.0); Sodium 137 mmol/L (137-145)
== END 2020-08-24 14:49 | disposition home or self-care (01) ==
LOC: ANHLAB 14:50
PROVIDERS: PCP Internal Medicine; Visit Provider Internal Medicine
DX: R00.0 Tachycardia, unspecified (principal); I45.10 Unspecified right bundle-branch block
CPT/HCPCS: 36415; 80053; 93005

== ENCOUNTER 2021-02-28 11:44 | Outpatient (CLI) | payer MEDICARE, SELFPAY ==
[2021-02-28 12:18] LABS: Alanine Aminotransferase 25 U/L (4-35); Albumin Level 4.7 g/dL (3.5-5.1); Alkaline Phosphatase 73 U/L (38-126); Anion Gap 6 mmol/L (8-16); Aspartate Amino Transferase 30 U/L (14-36); Bilirubin,Total 0.8 mg/dL (0.2-1.3); Blood Urea Nitrogen 20 mg/dL (7-17); Calcium 9.4 mg/dL (8.4-10.2); Carbon Dioxide 28 mmol/L (22-30); Chloride 99 mmol/L (98-107); Cholesterol 144 mg/dL (0-200); Estimated Glomerular Filt Rate > 60; Glucose 100 mg/dL (65-110); HDL Direct 62 mg/dL; Sodium 133 mmol/L (137-145); Triglycerides 74 mg/dL (<150)
[2021-02-28 12:29] LABS: LDL Cholesterol Direct 58 mg/dL
[2021-02-28 12:30] LABS: Basophils Percent Auto 0.5 % (0.2-1.2); Eosinophils Absolute Auto 0.1 K/mm3 (0-0.3); Eosinophils Percent Auto 1.5 % (0-4.4); Hematocrit 43.8 % (37.0-47.0); Hemoglobin 14.3 g/dL (12.0-15.0); Immature Granulocyte Absolute 0.02 K/mm3 (0.00-0.031); Immature Granulocyte Percent A 0.2 % (0-0.5); Lymphocytes Percent Auto 29.5 % (18.3-44.2); Mean Corpuscular HGB Conc 32.6 g/dl (32-36); Mean Corpuscular Hemoglobin 30.2 pg (26-34); Mean Corpuscular Volume 92.6 fl (80-100); Monocytes Absolute Auto 0.7 K/mm3 (0.1-0.6); Monocytes Percent Auto 8.5 % (2.6-8.5); Neutrophils Absolute Auto 5.1 K/mm3 (1.3-6.7); Neutrophils Percent Auto 59.8 % (45.5-73.1); Platelet Count Result 274 k/mm3 (150-375); Red Blood Count 4.73 M/mm3 (4.2-5.4); Red Cell Distribution Width 13.2 % (11.5-14.5); White Blood Count 8.5 K/mm3 (4.5-10.0)
[2021-02-28 12:55] LABS: Add Urine Microscopic? YES; Appearance Urine Clear (Clear); Bacteria Urine 4+ /hpf; Bilirubin Urine Negative (Negative); Blood Urine Negative (Negative); Color Urine Yellow (Yellow); Glucose Urine UA Negative (Negative); Ketones Urine Negative (Negative); Leukocyte Esterase Ur Trace LEU/UL (NEGATIVE); Mucus Urine Rare /lpf; Nitrate Urine Negative (Negative); Protein Urine Negative (Negative); RBC Urine 0-2 /hpf (0-2); Specific Grav Ur 1.011 (1.001-1.035); Squamous Epithelial Cell Urine Occasional /hpf (Few); Urobilinogen Urine Negative mg/dL (<2.0)
== END 2021-02-28 11:45 | disposition home or self-care (01) ==
LOC: ANHLAB 11:46
PROVIDERS: PCP Internal Medicine; Visit Provider Internal Medicine
DX: E55.9 Vitamin D deficiency, unspecified (principal); I10 Essential (primary) hypertension; E78.2 Mixed hyperlipidemia
CPT/HCPCS: 36415; 80053; 80061; 81001; 82306; 84443; 85025

== ENCOUNTER 2021-03-06 09:31 | Outpatient (CLI) | payer MEDICARE, SELFPAY ==
--- NOTE | ~2021-03-06 | CT_ITS ---
EXAMINATION:CT lung screening DATE: 03/06/2021 09:50 INDICATION: Personal history of nicotine dependence. Current smoker. TECHNIQUE: Computed tomography (CT) of the chest was performed without intravenous contrast. Automate d exposure control and iterative reconstruction technique were employed. The dose-length product (DLP ) was 81.42 mGy-cm. COMPARISON: CT abdomen and pelvis 11/12/2019 FINDINGS: There is moderate emphysema. There is mild atelectasis bilaterally. There is a 3 mm nodule in left lower lobe. There is a 4 mm nodule in left lower lobe. No pleural effusion. The heart size is normal. There are coronary artery calcifications. There is a stable small pericardial effusion. Ther e are changes of cholecystectomy. There is severe thoracic and lumbar spondylosis. IMPRESSION: 1. Lung-RADS category 2: Benign appearance or behavior. Reviewed, dictated and finalized at location [address] [employer]
== END 2021-03-06 09:32 | disposition home or self-care (01) ==
LOC: ANHIMG 09:35
PROVIDERS: PCP Internal Medicine; Visit Provider Internal Medicine
DX: Z12.2 Encounter for screening for malignant neoplasm of respiratory organs (principal); Z87.891 Personal history of nicotine dependence
CPT/HCPCS: 71271

== ENCOUNTER 2021-05-29 00:12 | Day surgery (SDC) | payer MEDICARE, SELFPAY ==
[2021-03-13 11:52] VITALS: BMI 22.6
[2021-05-18 13:39] VITALS: BMI 22.6
[2021-05-29 08:34] VITALS: BP 130/75; PULSE 95; RESP 16; TEMP 36.2; O2SAT 96
[2021-05-29] MEDS: LACTATED RINGERS 1,000 ML 150 ML IV CONT (08:39)
--- NOTE | 2021-05-29 09:20 | WPDANESEPPF ---
Anes - Initial Pre Proc Eval Procedure: Operation Date: 05/29/21 10:00 Proposed Procedures p Colonoscopy - Kirt Nolen MD Date/Time: 05/29/21 09:20 Surgeon: Kirt Nolen MD Pre Op Diagnosis: positive cologuard Patient Data Age: 75 Gender: F Height: 1.68 m Weight: 63.9 kg Last Vital Signs Temp 97.1 F L 05/29/21 08:34 Pulse 95 05/29/21 08:34 Resp 16 05/29/21 08:34 BP 130/75 05/29/21 08:34 Pulse Ox 96 05/29/21 08:34 Allergies Allergy/AdvReac Type Severity Reaction Status Date / Time No Known Allergies Allergy Verified 05/29/21 08:33 Home Medications Medication Instructions Recorded Confirmed Type calcium carbonate [Calcium 500] 500 mg PO DAILY 11/12/19 05/29/21 History cholecalciferol (vitamin D3) 125 mcg PO DAILY 11/12/19 05/29/21 History amitriptyline 50 mg tablet 50 mg PO HS #90 tablet 06/16/20 05/29/21 Rx gabapentin 100 mg capsule See Rx Instructions .ROUTE 09/11/20 05/29/21 Rx .COMPLEX #90 cap amlodipine 5 mg tablet 5 mg PO DAILY #90 tablet 02/28/21 05/29/21 Rx hydrocodone 7.5 mg-acetaminophen 1 tablet PO TID PRN tablet 02/28/21 05/29/21 History 325 mg tablet rosuvastatin 5 mg tablet 5 mg PO DAILY #90 tablet 05/21/21 05/29/21 Rx Patient hx anesthesia problems: none Family hx anesthesia problems: none Results Review: All pre-operative results and documents have been reviewed as part of the pre-operative evaluation. [facility]LY [facility] Past Medical History Medical History Degenerative disc disease Hypertension Smoker Surgical History Surgical History Hx laparoscopic cholecystectomy 11/14/19 Hx of appendectomy Family History Family History Mother Diabetes mellitus Father Acute myocardial infarction Social History Social History Smoking packs per day: 0.5 Smoking cigarettes per day: 10.0 Years smoked: 30 Smoking pack-years: 15.00 Smoking status: Current every day smoker Tobacco type: cigarettes Additional smoking assessment comments: started smoking in her 20's Alcohol intake: never Substance use: current Substance use type: opiates Other substance usage details: goes to pain clinic for 7.5 norco and gabapentin routine for lumbar pain Living arrangements: with family Additional living arrangements comments: son lives with her Gender identity (if verbalized by the patient): Female Spiritual care concerns: No Anes - Eval Final PreProcedure Day of Procedure 05/29/21 09:20 Patient weight: normal Heart: regular rate and rhythm Lungs: clear to auscultation Airway: Mallampati scale class II Neurological: alert and oriented Last oral intake: >/= 8 hours ASA classification: III Emergent: no Anesthetic plan: proceed Anesthesia type and monitoring: general GIVS and standard monitoring Results Review: All pre-operative results and documents have been reviewed as part of the pre-operative evaluation. Informed Consent: The patient's anesthetic plan and its attendant risks and benefits were discussed with the patient/family/POA. Questions were solicited and answers provided to the satisfaction of the patient/family/POA.
--- NOTE | 2021-05-29 09:37 | PM.HPGS ---
History of Present Illness History of Present Illness Consent: Risks, benefits, and alternatives have been discussed and questions answered. Patient agrees to proceed with procedure. Chief complaint: positive cologuard Narrative: Sandy Kaur is a 75 year old female here for first colonoscopy, had + cologuard Review of Systems Constitutional: Constitutional: Denies headache(s) and Denies weakness Eyes: Eyes: Denies blurry vision ENT: Reports Normal hearing present, Denies headache(s) and Denies neck pain Cardiovascular: Cardiovascular: Denies chest pain and Denies dyspnea Respiratory: Respiratory: Denies dyspnea Gastrointestinal: Gastrointestinal: Reports no additional gastrointestinal complaints Genitourinary: Genitourinary: Denies dysuria Musculoskeletal: Musculoskeletal: Denies neck pain Integumentary/Breasts: Skin/Breast: Denies dry skin Neurologic: Reports Normal hearing present, Denies headache(s) and Denies weakness Psychiatric: Psychiatric: Denies anxiety Endocrine: Endocrine: Denies change in body appearance Hematologic/Lymphatic: Hematologic/Lymphatic: Denies easy bleeding Allergic/Immunologic: Allergic/Immunologic: Denies urticaria PMFSH Past Medical History Medical History Degenerative disc disease Hypertension Positive colorectal cancer screening using Cologuard test Smoker Surgical History Surgical History Hx laparoscopic cholecystectomy 11/14/19 Hx of appendectomy Family History Family History Mother Diabetes mellitus Father Acute myocardial infarction Social History Social History Smoking packs per day: 0.5 Smoking cigarettes per day: 10.0 Years smoked: 30 Smoking pack-years: 15.00 Smoking status: Current every day smoker Tobacco type: cigarettes Additional smoking assessment comments: started smoking in her 20's Alcohol intake: never Substance use: current Substance use type: opiates Other substance usage details: goes to pain clinic for 7.5 norco and gabapentin routine for lumbar pain Living arrangements: with family Additional living arrangements comments: son lives with her Gender identity (if verbalized by the patient): Female Spiritual care concerns: No Meds Home Medications and Allergies Home Medications Medication Instructions Recorded Confirmed Type calcium carbonate [Calcium 500] 500 mg PO DAILY 11/12/19 05/29/21 History cholecalciferol (vitamin D3) 125 mcg PO DAILY 11/12/19 05/29/21 History amitriptyline 50 mg tablet 50 mg PO HS #90 tablet 06/16/20 05/29/21 Rx gabapentin 100 mg capsule See Rx Instructions .ROUTE 09/11/20 05/29/21 Rx .COMPLEX #90 cap amlodipine 5 mg tablet 5 mg PO DAILY #90 tablet 02/28/21 05/29/21 Rx hydrocodone 7.5 mg-acetaminophen 1 tablet PO TID PRN tablet 02/28/21 05/29/21 History 325 mg tablet rosuvastatin 5 mg tablet 5 mg PO DAILY #90 tablet 05/21/21 05/29/21 Rx Allergies Allergy/AdvReac Type Severity Reaction Status Date / Time No Known Allergies Allergy Verified 05/29/21 08:33 Vital Signs Vital Signs - 24 hr 05/29/21 08:34 Temperature 97.1 F L Pulse Rate 95 Respiratory Rate 16 Blood Pressure 130/75 Pulse Oximetry 96 Exam Const: General: comfortable and no acute distress HENMT: General nose exam: Normal nares present Eyes: General: appearance normal, both eyes and all related structures Neck: Neck: no JVD Resp: Auscultation: clear to auscultation bilaterally Cardio: Rate: regular rate Rhythm: regular rhythm GI: Inspection: non-distended GI Palp: Yes Soft to palpation Skin: General skin exam: normal color Neuro: General: gait normal Speech: normal speech Extrem: General: normal to inspection Psych: Mental Status: mental status grossly normal Assessment and Plan Assessment and
[2021-05-29 10:04] VITALS: BP 106/71; PULSE 93; RESP 22; O2SAT 97
[2021-05-29 10:14] VITALS: BP 114/79; PULSE 93; RESP 18; O2SAT 98
[2021-05-29 10:24] VITALS: BP 126/81; PULSE 86; RESP 21; O2SAT 98
== END 2021-05-29 10:36 | disposition home or self-care (01) ==
PROVIDERS: PCP Internal Medicine; Visit Provider Internal Medicine Gastroenterology
PROC: 0DJD8ZZ Inspection of Lower Intestinal Tract, Via Natural or Artificial Opening Endoscopic (ICD-10-PCS; CPT 45378; principal; 2021-05-29 10:00)
DX: R19.5 Other fecal abnormalities (principal); D12.4 Benign neoplasm of descending colon; K63.5 Polyp of colon; K64.8 Other hemorrhoids; I10 Essential (primary) hypertension; F17.210 Nicotine dependence, cigarettes, uncomplicated; Z79.891 Long term (current) use of opiate analgesic
CPT/HCPCS: 45380; 45385; 88305; J2704; J7120

== ENCOUNTER 2021-09-10 09:53 | Outpatient (CLI) | payer MEDICARE, SELFPAY ==
[2021-09-10 11:14] LABS: Alanine Aminotransferase 23 U/L (6-35); Albumin Level 4.7 g/dL (3.5-5.1); Alkaline Phosphatase 69 U/L (38-126); Anion Gap 6 mmol/L (8-16); Aspartate Amino Transferase 24 U/L (14-36); Bilirubin,Total 0.9 mg/dL (0.2-1.3); Blood Urea Nitrogen 16 mg/dL (7-17); Calcium 9.4 mg/dL (8.4-10.2); Carbon Dioxide 28 mmol/L (22-30); Chloride 103 mmol/L (98-107); Estimated Glomerular Filt Rate > 60; Glucose 107 mg/dL (65-110); Potassium 4.5 mmol/L (3.4-5.0); Sodium 137 mmol/L (137-145)
== END 2021-09-10 09:54 | disposition home or self-care (01) ==
LOC: ANHLAB 09:56
PROVIDERS: PCP Internal Medicine; Visit Provider Internal Medicine
DX: E67.3 Hypervitaminosis D (principal); I10 Essential (primary) hypertension
CPT/HCPCS: 36415; 80053; 82306

== ENCOUNTER 2022-09-11 08:31 | Outpatient (CLI) | payer MEDICARE, SELFPAY ==
[2022-09-11 09:08] LABS: Alanine Aminotransferase 38 U/L (6-35); Albumin Level 4.5 g/dL (3.5-5.1); Alkaline Phosphatase 68 U/L (38-126); Anion Gap 7 mmol/L (8-16); Aspartate Amino Transferase 34 U/L (14-36); Bilirubin,Total 0.9 mg/dL (0.2-1.3); Blood Urea Nitrogen 16 mg/dL (7-17); Calcium 9.1 mg/dL (8.4-10.2); Carbon Dioxide 30 mmol/L (22-30); Chloride 101 mmol/L (98-107); Cholesterol 149 mg/dL (0-200); Estimated Glomerular Filt Rate > 60; Glucose 111 mg/dL (65-110); HDL Direct 64 mg/dL; Potassium 3.9 mmol/L (3.4-5.0); Sodium 138 mmol/L (137-145); Triglycerides 112 mg/dL (<150)
[2022-09-11 09:19] LABS: LDL Cholesterol Direct 60 mg/dL
== END 2022-09-11 08:32 | disposition home or self-care (01) ==
LOC: ANHLAB 08:32
PROVIDERS: PCP Family Medicine; Visit Provider Nurse Practitioner
DX: E78.5 Hyperlipidemia, unspecified (principal)
CPT/HCPCS: 36415; 80053; 80061

== ENCOUNTER 2023-05-28 08:34 | Outpatient (CLI) | payer MEDICARE, SELFPAY ==
[2023-05-28 08:57] LABS: Basophils Percent Auto 0.5 % (0.2-1.2); Eosinophils Absolute Auto 0.3 K/mm3 (0-0.3); Eosinophils Percent Auto 3.6 % (0-4.4); Hematocrit 44.3 % (37.0-47.0); Hemoglobin 14.4 g/dL (12.0-15.0); Immature Granulocyte Absolute 0.02 K/mm3 (0.00-0.031); Immature Granulocyte Percent A 0.3 % (0-0.5); Lymphocytes Absolute Auto 3.14 K/mm3 (0.9-3.2); Lymphocytes Percent Auto 42.3 % (18.3-44.2); Mean Corpuscular HGB Conc 32.5 g/dl (32-36); Mean Corpuscular Hemoglobin 29.8 pg (26-34); Mean Corpuscular Volume 91.7 fl (80-100); Mean Platelet Volume 8.5 fl (7.4-10.4); Monocytes Absolute Auto 0.6 K/mm3 (0.1-0.6); Monocytes Percent Auto 7.8 % (2.6-8.5); Neutrophils Absolute Auto 3.4 K/mm3 (1.3-6.7); Neutrophils Percent Auto 45.5 % (45.5-73.1); Platelet Count Result 291 k/mm3 (150-375); Red Blood Count 4.83 M/mm3 (4.2-5.4); Red Cell Distribution Width 13.2 % (11.5-14.5); White Blood Count 7.4 K/mm3 (4.5-10.0)
[2023-05-28 09:11] LABS: Alanine Aminotransferase 32 U/L (6-35); Albumin Level 4.5 g/dL (3.5-5.1); Alkaline Phosphatase 80 U/L (38-126); Anion Gap 7 mmol/L (8-16); Aspartate Amino Transferase 35 U/L (14-36); Bilirubin,Total 0.8 mg/dL (0.2-1.3); Blood Urea Nitrogen 14 mg/dL (7-17); Calcium 9.5 mg/dL (8.4-10.2); Carbon Dioxide 27 mmol/L (22-30); Chloride 102 mmol/L (98-107); Cholesterol 146 mg/dL (0-200); Estimated Glomerular Filt Rate > 60; Glucose 101 mg/dL (65-110); HDL Direct 66 mg/dL; Potassium 3.9 mmol/L (3.4-5.0); Sodium 136 mmol/L (137-145); Triglycerides 96 mg/dL (<150)
[2023-05-28 09:22] LABS: LDL Cholesterol Direct 64 mg/dL
[2023-05-28 09:31] LABS: Hemoglobin A1C 6.3 % (<5.7)
[2023-05-28 09:41] LABS: Vitamin D 25 Hydroxy 49.2 ng/mL
== END 2023-05-28 08:35 | disposition home or self-care (01) ==
LOC: ANHLAB 08:37
PROVIDERS: PCP Family Medicine; Visit Provider Nurse Practitioner Family
DX: E78.5 Hyperlipidemia, unspecified (principal); I10 Essential (primary) hypertension; E67.3 Hypervitaminosis D; R73.01 Impaired fasting glucose; Z13.0 Encounter for screening for diseases of the blood and blood-forming organs and certain disorders involving the immune mechanism
CPT/HCPCS: 36415; 80053; 80061; 82306; 83036; 85025

== ENCOUNTER 2024-06-16 09:17 | Outpatient (CLI) | payer MEDICARE, SELFPAY ==
--- OUTSIDE RECORDS SUMMARY | 2024-06-16 09:59 | XMS_ITS | Clinical Summary ---
Author Organization [facility] Address [address] [place] [id number] Care Team Providers Care Fisher Oyster Name Role Phone Yelitza Pollock MD Unavailable Any June RN Unavailable UnavailAny Wilcox RN Unavailable Unavaila Margareth Melton LPN Unavailable Unavailable Lucie Whittington RN Unavailable Unavailab Yelitza Krishna MD Primary Care Provider [phone] Allergies No known active allergies Medications calcium carbonate-vitamin D3 (CALCIUM 500 + D) 1,250mg (500mg elemental) - 200 units per tablet take 1 by Oral route every day 0 0 3 Active amLODIPine (NORVASC) 5 mg tablet Take 1 tablet (5 mg total) by mouth daily 90 tablet 1 Active rosuvastatin (CRESTOR) 5 mg tablet Take 1 tablet (5 mg total) by mouth daily 1 Active gabapentin (NEURONTIN) 100 mg capsuleIndication s:Chronic right-sided low back pain with right-sided sciatica,Lumbar post-laminectomy syndrome,Lumbosac ral radiculopathy Take 1 capsule (100 mg total) by mouth 3 (three) times a day 90 capsule 11 2 Active gabapentin (NEURONTIN) 100 mg capsuleIndication s:Lumbar post-laminectomy syndrome,Lumbar radiculopathy Take 1 capsule (100 mg total) by mouth 3 (three) times a day 90 capsule 3 4 Active amitriptyline (ELAVIL) 50 mg tabletIndications :Lumbar post-laminectomy syndrome,Lumbar radiculopathy,Spi nal stenosis of lumbar region without neurogenic claudication Take 1 tablet (50 mg total) by mouth nightly 30 tablet 11 4 Active HYDROcodone-aceta minophen (NORCO) 7.5-325 mg per tabletIndications :Pain Take 1 tablet by mouth every 8 (eight) hours as needed for pain 90 tablet 4 Active vit C,L-Yr-zfpir-lute in-zeaxan 250-90-40-1 mg capsule Take 1 capsule by mouth 2 (two) times a day Active HYDROcodone-aceta minophen (NORCO) 7.5-325 mg per tabletIndications :Pain Take 1 tablet by mouth every 8 (eight) hours as needed for pain 90 tablet 5 Active HYDROcodone-aceta minophen (NORCO) 7.5-325 mg per tabletIndications :Pain Take 1 tablet by mouth every 8 (eight) hours as needed for pain 90 tablet 5 07/13/19 25 Active gabapentin (NEURONTIN) 100 mg capsuleIndication s:Lumbar post-laminectomy syndrome,Lumbosac ral radiculopathy Take 1 capsule (100 mg total) by mouth 3 (three) times a day 90 capsule 11 5 Active gabapentin (NEURONTIN) 100 mg capsuleIndication s:Lumbar post-laminectomy syndrome,Lumbosac ral radiculopathy TAKE 1 CAPSULE(100 MG) BY MOUTH THREE TIMES DAILY 90 capsule 11 4 06/09/19 25 Discontinu ed(Reorder ) Active Problems Problem Noted Date Diagnosed Date Weakness of left upper extremity 12/08/2019 Aortic atherosclerosis 07/09/2018 Assessment & Plan (07/09/2018 12:04 PM CDT): Incidental finding on imaging Asymptomatic Continue HTN control Labs today Pulmonary emphysema 07/09/2018 Assessment & Plan (07/09/2018 12:04 PM CDT): Incidental finding on imaging No exacerbations in last 12 months Stable without inhalers. Vocal tremor 07/09/2018 Assessment & Plan (07/09/2018 12:06 PM CDT): New onset over last 6 months. No other tremor or spasticity Discussed further eval by movement disorders center at [facility], patient will consider prison prescription opiate use 08/21/2017 BMI 24.0-24.9, adult 06/17/2017 Assessment & Plan (07/09/2018 12:03 PM CDT): discussed healthy diet, exercise and adequate sleep Body mass index is 24.43 kg/m . Assessment & Plan (06/17/2017 12:15 PM CDT): Body mass index is 22.55 kg/m . discussed healthy diet, exercise and adequate sleep Cystocele, midline 05/22/2017 Incomplete uterovaginal prolapse 05/22/2017 Chronic right-sided low back pain with right-malena ed sciatica 04/02/2017 Lumbosacral spondylosis without myelopathy 04/02 Spondylosis of lumbar region without myelopathy or radiculopathy 02/27/2017 Assessment & Plan (06/17/2017 12:14 PM CDT): Stable Managed by Pain mgmt - Dr. Adams Lumbar spinal stenosis 02/27/2017 Lumbar radiculopathy 02/27/2017 Lumbar post-laminectomy syndrome 02/27/2017 Chronic pain 11/27/2016 Tobacco dependence syndrome 04/16/2016 Assessment & Plan (07/09/2018 12:04 PM CDT): Discussed LDCT for lulng cancer screening Patient declined Encouraged TOB cessation Essential hypertension 11/15/2015 Overview (07/10/2019): 06/2018 - total 204; Trig 158; HDL 56; LDL 116 Assessment & Plan (07/09/2018 12:05 PM CDT): Hypertension is controlled. Continue current treatment regimen. Stop smoking. Blood pressure will be reassessed at the next regular appointment. Assessment & Plan (06/17/2017 12:14 PM CDT): Hypertension is controlled. Continue current treatment regimen. Stop smoking. Blood pressure will be reassessed at the next regular appointment. Hammer toe 08/07/2013 Lumbosacral radiculopathy Resolved Problems Problem Noted Date Diagnosed Date Resolved Date Screening for condition 07/09/201806/22 Assessment & Plan (07/09/2018 12:03 PM CDT): Patient screened for future fall risk; documentation of no falls in the past year or only 1 fall without injury in the past year Medicare annual wellness visit, subsequent 06/17/2017 07/10/2019 Assessment & Plan (07/09/2018 12:03 PM CDT): Patient independant in all ADLs and IADLs. no significant decline in overall physical or mental health over last 12 months. no ER visits or hospital stays. recommend at least 10 minutes of moderate intensity exercise most days of the week with a goal of 150 minutes weekly. Assessment & Plan (06/17/2017 12:14 PM CDT): Patient independant in all ADLs and IADLs. no significant decline in overall physical or mental health over last 12 months. no ER visits or hospital stays. Benign hypertension 08/07/2013 06/18/19 18 Encounters Date Type Department Care Team Description 05/13/2024 11:17 AM IT INFRASTRUCTURE CONSULTANT - 05/13/2024 11:59 PM IT INFRASTRUCTURE CONSULTANT Hospital Encounter [facility] [address] [place] [address] Vinnie Amaral NP Lumbar post-laminectomy syndrome [M96.1] (Primary Dx); Lumbar radiculopathy [M54.16]; Spinal stenosis of lumbar region without neurogenic claudication [M48.061] Discharge Disposition: Discharge to home or self care 04/23/2024 Telephone [facility] [address] [place] [address] Bridger Riddle MD 04/15/2024 2:10 PM IT INFRASTRUCTURE CONSULTANT Ancillary Procedure [facility] [address] [place] [address] Encounter for screening mammogram for malignant neoplasm of breast 04/15/2024 1:15 PM IT INFRASTRUCTURE CONSULTANT Office Visit [facility] [address] [place] [address] Bridger Riddle MD Encounter for gynecological examination without abnormal finding (Primary Dx); Incomplete uterovaginal prolapse; Cystocele, midline 04/15/2024 Orders Only [facility] [address] [place] [address] Bridger Riddle MD Encounter for screening mammogram for malignant neoplasm of breast (Primary Dx) 03/30/2024 Orders Only [facility] [address] [place] [address] Bridger Riddle MD Encounter for screening mammogram for malignant neoplasm of breast (Primary Dx) from Last 3 Months Immunizations Immunization Administration Dates Next Due Influenza, Quad, Adjuvantate d, Intramuscular 01/02/2020 Influenza, Quadrivalent, Spl it, Preservative Free, Intramuscular 01/04/2019 Influenza, Split 12/24/2010 Influenza, Trivalent, Adjuva nted, Intramuscular 02/05/2018 Influenza, Trivalent, High D ose, Split, Preservative Free, Intramuscular 12/25/2015 Influenza, Trivalent, IM (MDV) 5,12/26/2014,12/22/2012,01/26 Influenza, Trivalent, Preser vative Free, Intramuscular 12/22/2013 Influenza, Unspecified 01/08/2018,2017,12/18/2016,12/18 Pneumococcal Conjugate PCV 13 07/09/2018 Pneumococcal Polysaccharide PPV23 05/17/2011 TD Preservative Free 03/11/2013,03/11/2013 ZOSTER LIVE 03/11/2013,03/11/2013 Surgical History Surgery Date Site/Laterality Comments TONSILLECTOMY OTHER SURGICAL HISTORY 03/24/2011 - 03/23/2012 sepsis, LLL Pneumonia: Hospitalization OTHER SURGICAL HISTORY 03/24/2013 - 03/23/2014 spinal stenosis L5-S1 incl foraminal stenosis L5-S1, right sciatica: decompressive lumbar laminectomy, L5-S1 on right; foraminotomy L5-S1 on right APPENDECTOMY LAMINECTOMY CHOLECYSTECTOMY 03/24/2019 - 03/23/2020 Medical History Medical History Date Comments Hx Other Medical sepsis, LLL Pne umonia Hypertension Hypertension Hx Other Medical spinal stenosis L5-S1 incl foraminal stenosis L5-S Chronic pain disorder Lumbosacral disc disease Low back pain Arthritis Joint pain Family History Medical History Relation Name Comments Coronary artery disease Father Heart attack Father Lung cancer Father Diabetes Mother Diabetes type II Mother Hypertension Mother Stroke Mother Cancer Other 1 Diabetes Other 2 Heart disease Other 3 Hypertension Other 4 Stroke Other 5 Diabetes Sister 1 x2 Diabetes type II Sister 2 Obesity Sister 3 Breast cancer Sister 4 Colon cancer Neg Hx Ovarian cancer Neg Hx Relation Name Status Comments Father Mother (Age 66) Other 1 Other 2 Other 3 Other 4 Other 5 Sister 1 x2 Sister 2 Sister 3 Sister 4 Social History Tobacco Use Types Packs/Day Years Used Date Smoking Tobacco: Every Day Cigarettes 0.5 31 Smokeless Tobacco: Never Tobacco Cessation:Ready to Q uit: Not Asked; Counseling Given: Not Answered Alcohol Use Standard Drinks/Week Comments No 0 (1 standard drink = 0.6 oz pur e alcohol) PHQ-2 Answer Date Recorded PHQ-2 Score 0 11/13/2018 Comments No Sex and Gender Information Value Date Recorded Sex Assigned at Not on file Legal Sex Female 1:19 AM IT INFRASTRUCTURE CONSULTANT Gender Identity Not on file Sexual Orientation Not on file Occupation Industry Job Start Date Job End Date RN Not on file Not on file Not on file Obstetrics History Para Term AB IAB SAB Ectopic Multiple Livin g Live Births 3 2 2 0 1 2 Date Outcome GA Total Labor Labor/2nd/3rd Weight Sex Type Anes PTL Nighat A1 A5 Name Clin Term Term AB Last Filed Vital Signs Vital Sign Reading Time Taken Comments Blood Pressure 108/76 05/13/2024 12:03 PM IT INFRASTRUCTURE CONSULTANT Pulse 99 05/13/2024 12:03 PM IT INFRASTRUCTURE CONSULTANT Temperature 36.6 C (97.9 F) 05/01/2021 1:44 PM IT INFRASTRUCTURE CONSULTANT Respiratory Rate 16 05/13/2024 12:03 PM IT INFRASTRUCTURE CONSULTANT Oxygen Saturation 94% 05/13/2024 12:03 PM IT INFRASTRUCTURE CONSULTANT Inhaled Oxygen Concentration - - Weight 55.3 kg (122 lb) 04/15/2024 1:03 PM IT INFRASTRUCTURE CONSULTANT Height 166.4 cm (5' 5.5 ) 04/15/2024 1:03 PM IT INFRASTRUCTURE CONSULTANT Body Mass Index 19.99 04/15/2024 1:03 PM IT INFRASTRUCTURE CONSULTANT Plan of Treatment Health Maintenance Due Date Last Done Comments Hepatitis B Screening 07/23/1963 DTaP/Tdap/Td Vaccine (1 - Tdap) 03/12/2013 3, 03/11/2013 Zoster Vaccine (2 of 3) 05/06/2013 03/11/2013, 03/11 Osteoporosis Screening-Bone Density Scan 03/27/2014 03/27/2012, 03/27/2012 Depression Screening 11/14/2019 11/13/2018, 11/13/2018, 07/09/2018, Additional history exists Colon Cancer Screening-DNA Stool 08/04/2021 08/05/19 Influenza Vaccine (#1) 2023 , 01/04/2019, 02/05/2018, Additional history exists Well Visit 65+ 04/15/2025 04/15/2024, 06/2023, 03/02/2021, Additional history exists Fall Risk Assessment 05/13/2025 05/13/2024, 07/09/2018, 06/17/2017 Hepatitis C Screening Completed 06/17/2017 Pneumococcal vaccine 65+ Completed 07/09/2018, 04/25 Breast Cancer Screening-Mammogram Discontinued 04/15/2024, 03/27/2023, 03/02/2021, Additional history exists Goals Goal Patient Goal Type Associated Problems Recent Progress Patient-Stated? Author Being active Exercise Betzy Downs, RN Note: 2Patient will be more active by: exercising more often 50%= Score 3 Increase physical activity Exercise No Any June, RN Note: Today the patient was encouraged to increase daily activity. The patient is aware of the benefits associated with increased physical health. If needed we will provided resources to help create a plan and provide support. Medical Devices Implanted Type Area Brush Sander Device Identifier Shelf Expiration Date Model / Serial / Lot Kit Stimulator Octrode L60 Cm Trial Lead Neurostimulator - [id number] Implanted:Qty: 1 on 04/02/2017 by Agus Adams MD at [facility] Physician Office Building 2 [facility] 3086 / / Kit Stimulator Octrode L60 Cm Trial Lead Neurostimulator - [id number] Implanted:Qty: 1 on 04/02/2017 by Agus Adams MD at [facility] Physician Office Building 2 [facility] 3086 / / Procedures Procedure Name Priority Date/Time Associated Diagnosis Comments SCREENING MAMMOGRAM BILATERAL W SEAMUS Schedule Routine, Read Routine (OP Routine) 04/15/2024 1:43 PM IT INFRASTRUCTURE CONSULTANT Encounter for screening mammogram for malignant neoplasm of breast STOOL DNA COLOGUARD Routine 08/04/2018 HEPATITIS C ANTIBODY Routine 06/17/2017 12:06 PM CDT Annual physical exam Screening for viral disease HM DEXA SCAN Routine 03/27/2012 from Last 3 Months or Most Recently Relevant to Health Maintenance Results * Screening Mammogram Bilateral W Seamus (04/15/2024 1:43 PM IT INFRASTRUCTURE CONSULTANT) Anatomical Region Laterality Modality Breast Bilateral Mammography 04/15/2024 1:57 PM IT INFRASTRUCTURE CONSULTANT Impressions 04/15/2024 1:57 PM IT INFRASTRUCTURE CONSULTANT There is no mammographic evidence of malignancy. A 1 year screening mammogram is recommended. BI-RADS: 2 - Benign. The patient has been or will be contacted. The patient will be entered into a reminder system with a target due date of 1 year for her next mammogram. Electronically signed by: Viral Del Cid M.D. Narrative 04/15/2024 1:57 PM IT INFRASTRUCTURE CONSULTANT EXAMINATION: SCREENING MAMMOGRAM BILATERAL W SEAMUS ORDERING HEALTHCARE PROVIDER: BRIDGER RIDDLE HISTORY: Routine screening mammography. COMPARISON: 03/27/2023, 03/02/2021, 12/31/2019, 05/28/2016 TECHNIQUE: CC and MLO views of the bilateral breasts were obtained with digital technique using breast tomosynthesis with C view. Computer aided detection was utilized. FINDINGS: DENSITY: There are scattered areas of fibroglandular density. BREASTS: The left MLO view is suboptimal secondary to the patient's limited ability to cooperate for positioning due to a frozen shoulder. There are stable benign calcifications in the left breast. There are no suspicious masses, suspicious calcifications, or other suspicious findings in either breast. There has been no suspicious interval change. Bridger Riddle MD IMG MAMMO PROCEDURES Final Result * Stool DNA - Cologuard (08/04/2018) Stool Yelitza Pollock MD LAB BODY FLUIDS AND STOOL S ORDERABLES Final Result * Hepatitis C antibody (06/17/2017 12:06 PM CDT) Hep C Ab Negative Negative [facility] Blood specimen (specimen) 06/17/2017 12:06 PM CDT 06/17/2017 3:05 PM CDT Narrative [facility] - 06/17/2017 4:49 PM CDT Yelitza Pollock MD LAB MICROBIOLOGY - GENERA L ORDERABLES Edited Result - Final [facility] [address] Department [place] [address] * DEXA SCAN (03/27/2012) DEXA Scan Normal Vidhya Woods MD HEALTH MAINTENANCE Final Result from Last 3 Months or Most Recently Relevant to Health Maintenance Insurance [employer] HEALTHCARE UHC MEDICARE ADVANTAGE MEDICARE FOR[facility]LY [facility] MEDICARE Care Teams Fisher Oyster Relationship Specialty Start [place] [address] [address] PCP - General 07/26/20 [place] [address] [address] 06/21/16 Any June, BLANKA [address] [address] Registered Nurse 04/09/17 Any June, BLANK[place] [address] [address] Registered Nurse 04/14/17 Margareth Aguirre LPN Patient Unit Controller 05/01/17 Lucie Whittington RN Registered Nurse 05/19/18
--- OUTSIDE RECORDS SUMMARY | 2024-06-16 09:59 | XMS_ITS | Referral Summary ---
Author Organization [facility] Address [address] [place] [address] Care Team Providers Care [facility] Partner Name Role Phone Yelitza Pollock MD Unavailable [phone] Any June RN Unavailable UnavailAny Wilcox RN Unavailable Unavaila Margareth Melton FIRE ADJUSTER Unavailable Unavailable Lucie Whittington RN Unavailable Unavailab Yelitza Krishna MD Primary Care Provider [phone] Encounters Date Type Department Care Team Description 05/13/2024 11:17 AM TRUCK TRAILER MECHANIC - 05/13/2024 11:59 PM TRUCK TRAILER MECHANIC Hospital Encounter [facility] [address] [place] [address] Vinnie Amaral NP Lumbar post-laminectomy syndrome [M96.1] (Primary Dx); Lumbar radiculopathy [M54.16]; Spinal stenosis of lumbar region without neurogenic claudication [M48.061] Discharge Disposition: Discharge to home or self care 04/23/2024 Telephone [facility] [address] [place] [address] Bridger Riddle MD 04/15/2024 Orders Only [facility] [address] [place] [address] Bridger Riddle MD Encounter for screening mammogram for malignant neoplasm of breast (Primary Dx) 04/15/2024 2:10 PM TRUCK TRAILER MECHANIC Ancillary Procedure [facility] [address] [place] [phone] Encounter for screening mammogram for malignant neoplasm of breast 04/15/2024 1:15 PM TRUCK TRAILER MECHANIC [facility] [address] [place] [address] Bridger Riddle MD Encounter for gynecological examination without abnormal finding (Primary Dx); Incomplete uterovaginal prolapse; Cystocele, midline 03/30/2024 Orders Only [facility] [address] [place] [address] Bridger Riddle MD Encounter for screening mammogram for malignant neoplasm of breast (Primary Dx) from Last 3 Months Allergies No known active allergies Medications calcium [...] for pain 90 tablet 4 Active vit C,H-Xf-whnvr-lute in-zeaxan 250-90-40-1 mg capsule Take 1 capsule [...] further eval by movement disorders center at [facility], patient will consider oil heaterman prescription opiate use 08/21/2017 BMI 24.0-24.9, adult [...] hospital stays. Benign hypertension 08/07/2013 06/18/19 18 Immunizations Immunization Administration Dates Next Due Influenza, [...] TD Preservative Free 03/11/2013,03/11/2013 ZOSTER LIVE 03/11/2013,03/11/2013 Social History Tobacco Use Types Packs/Day Years [...] on file Legal Sex Female 1:19 AM TRUCK TRAILER MECHANIC Gender Identity Not on file Sexual Orientation Not on file Occupation Industry Job Start Date Job End Date RN Not on file Not on file Not on file Last Filed Vital Signs Vital Sign Reading Time Taken Comments Blood Pressure 108/76 05/13/2024 12:03 PM TRUCK TRAILER MECHANIC Pulse 99 05/13/2024 12:03 PM TRUCK TRAILER MECHANIC Temperature 36.6 C (97.9 F) 05/01/2021 1:44 PM TRUCK TRAILER MECHANIC Respiratory Rate 16 05/13/2024 12:03 PM TRUCK TRAILER MECHANIC Oxygen Saturation 94% 05/13/2024 12:03 PM TRUCK TRAILER MECHANIC Inhaled Oxygen Concentration - - Weight 55.3 kg (122 lb) 04/15/2024 1:03 PM TRUCK TRAILER MECHANIC Height 166.4 cm (5' 5.5 ) 04/15/2024 1:03 PM TRUCK TRAILER MECHANIC Body Mass Index 19.99 04/15/2024 1:03 PM TRUCK TRAILER MECHANIC Plan of Treatment Not on file Goals Goal Patient Goal Type Associated Problems Recent Progress Patient-Stated? Author Being active Exercise No Betzy Wade, RN Note: 2Patient will be more active by: exercising more often 50%= Score 3 Increase physical activity Exercise No Any June, RN Note: Today the patient was encouraged to increase daily activity. The patient is aware of the benefits associated with increased physical health. If needed we will provided resources to help create a plan and provide support. Medical Devices Implanted Type Area Human Resources Benefits Coordinator Device Identifier Shelf Expiration Date Model / Serial / Lot Kit Stimulator Octrode L60 Cm Trial Lead Neurostimulator - [id number] Implanted:Qty: 1 on 04/02/2017 by Agus Adams MD at [facility] Building [address] [employer] 3086 / / Kit Stimulator Octrode L60 Cm Trial Lead Neurostimulator - [id number] Implanted:Qty: 1 on 04/02/2017 by Agus Adams MD at [facility] Building [address] [employer] 3086 / / Procedures Procedure Name Priority Date/Time Associated Diagnosis Comments SCREENING MAMMOGRAM BILATERAL W SEAMUS Schedule Routine, Read Routine (OP Routine) 04/15/2024 1:43 PM TRUCK TRAILER MECHANIC Encounter for screening mammogram for malignant neoplasm of breast STOOL DNA COLOGUARD Routine 08/04/2018 HEPATITIS C ANTIBODY Routine 06/17/2017 12:06 PM CDT Annual physical exam Screening for viral disease HM DEXA SCAN Routine 03/27/2012 from Last 3 Months or Most Recently Relevant to Health Maintenance Results * Screening Mammogram Bilateral W Seamus (04/15/2024 1:43 PM TRUCK TRAILER MECHANIC) Anatomical Region Laterality Modality Breast Bilateral Mammography 04/15/2024 1:57 PM TRUCK TRAILER MECHANIC Impressions 04/15/2024 1:57 PM TRUCK TRAILER MECHANIC There is no mammographic evidence of malignancy. A 1 year screening mammogram is recommended. BI-RADS: 2 - Benign. The patient has been or will be contacted. The patient will be entered into a reminder system with a target due date of 1 year for her next mammogram. Electronically signed by: Viral Del Cid M.D. Narrative 04/15/2024 1:57 PM TRUCK TRAILER MECHANIC EXAMINATION: SCREENING MAMMOGRAM BILATERAL W SEAMUS ORDERING [...] There has been no suspicious interval change. us Bridger Riddle MD IMG MAMMO PROCEDURES Final Result * Stool DNA - Cologuard (08/04/2018) Stool us Yelitza Pollock MD LAB BODY FLUIDS AND STOOL S ORDERABLES Final Result * Hepatitis C antibody (06/17/2017 12:06 PM CDT) Hep C Ab Negative Negative [facility] Blood specimen (specimen) 06/17/2017 12:06 PM CDT 06/17/2017 3:05 PM CDT Narrative [facility] - 06/17/2017 4:49 PM CDT us Yelitza Pollock MD LAB MICROBIOLOGY - GENERA L ORDERABLES Edited Result - Final [facility] [address] Department [place] [address] * DEXA SCAN (03/27/2012) Pathologist [facility] DEXA Scan Normal us Historical Provider HEALTH MAINTENANCE Final Result from Last 3 Months or Most Recently Relevant to Health Maintenance Insurance [facility] UHC MEDICARE ADVANTAGE MEDICARE [facility] MEDICARE Care Teams [facility] Partner Relationship Specialty Start [place] [address] [address] PCP - General 07/26/20 [place] [address] [address] 06/21/16 Any June, BLANKA [address] [address] Registered Nurse 04/09/17 [place] [address] [address] Registered Nurse 04/14/17 Margareth Aguirre LPN Patient Auto Service Station Attendant 05/01/17 Lucie Whittington RN Registered Nurse 05/19/18
--- OUTSIDE RECORDS SUMMARY | 2024-06-16 09:59 | XMS_ITS | Encounter Summary ---
Author Organization [facility] Address [address] [place] [address] Phone Care Team Providers Care Senior Data Integration Developer Name Role Phone Yelitza Pollock MD Unavailable [phone] Yelitza Pollock MD Primary Care Provider [phone] Any June RN Unavailable UnavailAny Wilcox RN Unavailable Unavaila Margareth Melton LPN Unavailable Unavailable Lucie Whittington RN Unavailable Unavailab Yelitza Krishna MD Primary Care Provider [phone] Encounter Details Date Type Department Care Team (Late st Contact Info) Description 06/17/2017 Orders Only [facility] ProviderVidhya MD [address] [place] [address] Social History Tobacco Use Types Packs/Day Years Used Date Smoking Tobacco: Every Day Cigarettes 0.5 31 Smokeless Tobacco: Never Alcohol Use Standard Drinks/Week Comments No 0 (1 standard drink = 0.6 oz pur e alcohol) Comments No Sex and Gender Information Value Date Recorded Sex Assigned at Not on file 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 documented as of this encounter Procedures Procedure Name Priority Date/Time Associated Diagnosis Comments DISCHARGE LABORATORY CUMULATIVE REPORT 06/17/2017 12:00 AM CDT documented in this encounter Results * DISCHARGE LABORATORY CUMULATIVE REPORT (06/17/2017 12:00 AM CDT) Narrative 06/17/2017 12:00 AM CDT Ordered by an unspecified provider. us Historical Provider LAB BLOOD ORDERABLES Anamaria l Result documented in this encounter Visit Diagnoses Not on filedocumented in this encounter Care Teams Senior Data Integration Developer Relationship Specialty Start [place] [address] [address] PCP - General Family Medicine 02/27/17 06/29/20 [place] [address] [address] PCP - General 07/26/20 [place] [address] [address] 06/21/16 Any June, BLANKA [address] [address] Registered Nurse 04/09/17 [place] [address] [address] Registered Nurse 04/14/17 Margareth Aguirre LPN Patient Health Unit Supervisor 05/01/17 Lucie Whittington RN Registered Nurse 05/19/18 documented as of this encounter
[2024-06-16 10:15] LABS: Hematocrit 45.2 % (37.0-47.0); Hemoglobin 14.8 g/dL (12.0-15.0); Mean Corpuscular HGB Conc 32.7 g/dl (32-36); Mean Corpuscular Hemoglobin 30.2 pg (26-34); Mean Corpuscular Volume 92.2 fl (80-100); Mean Platelet Volume 8.9 fl (7.4-10.4); Platelet Count Result 262 k/mm3 (150-375); Red Cell Distribution Width 13.4 % (11.5-14.5); White Blood Count 6.6 K/mm3 (4.5-10.0)
[2024-06-16 10:26] LABS: Alanine Aminotransferase 44 U/L (6-35); Albumin Level 4.7 g/dL (3.5-5.1); Alkaline Phosphatase 86 U/L (38-126); Anion Gap 8 mmol/L (4-12); Aspartate Amino Transferase 35 U/L (14-36); Blood Urea Nitrogen 15 mg/dL (7-17); Calcium 9.7 mg/dL (8.4-10.2); Carbon Dioxide 30 mmol/L (22-30); Chloride 100 mmol/L (98-107); Cholesterol 160 mg/dL (0-200); Estimated Glomerular Filt Rate > 60; Glucose 104 mg/dL (65-110); HDL Direct 87 mg/dL; Potassium 3.8 mmol/L (3.4-5.0); Sodium 138 mmol/L (137-145); Triglycerides 93 mg/dL (<150)
[2024-06-16 10:41] LABS: LDL Cholesterol Direct 50 mg/dL
[2024-06-16 10:50] LABS: Vitamin D 25 Hydroxy 50.1 ng/mL
== END 2024-06-16 09:18 | disposition home or self-care (01) ==
LOC: ANHLAB 09:20
PROVIDERS: PCP Nurse Practitioner Family; Visit Provider Nurse Practitioner Family
DX: E67.3 Hypervitaminosis D (principal); I10 Essential (primary) hypertension; M72.0 Palmar fascial fibromatosis [Dupuytren]; E78.5 Hyperlipidemia, unspecified; Z72.0 Tobacco use; Z79.899 Other long term (current) drug therapy
CPT/HCPCS: 36415; 80053; 80061; 82306; 85027

== ENCOUNTER 2024-12-24 09:29 | Outpatient (CLI) | payer MEDICARE, SELFPAY ==
--- OUTSIDE RECORDS SUMMARY | 2024-12-24 09:38 | XMS_ITS | Clinical Summary ---
Author Organization [facility] Address [address] [place] [address] Care Team Providers Care Warranty Administrator Name Role Phone Yelitza Pollock MD Unavailable [phone] Any June RN Unavailable UnavailAny Wilcox RN Unavailable Unavaila Margareth Melton FELLMONGERY WORKER Unavailable Unavailable Lucie Whittington RN Unavailable Unavailab Yelitza Krishna MD Primary Care Provider [phone] Allergies No known active allergies Medications calcium [...] daily 1 Active gabapentin (NEURONTIN) 100 mg capsuleIndications :Chronic right-sided low back pain with right-sided sciatica,Lumbar post-laminectomy syndrome,Lumbosacr al radiculopathy Take 1 capsule (100 mg total) by mouth 3 (three) times a day 90 capsule 11 2 Active gabapentin (NEURONTIN) 100 mg capsuleIndications :Lumbar post-laminectomy syndrome,Lumbar radiculopathy Take 1 capsule (100 mg total) by mouth 3 (three) times a day 90 capsule 3 4 Active vit C,U-Dt-uskly-lutei n-zeaxan 250-90-40-1 mg capsule Take 1 capsule by mouth 2 (two) times a day Active gabapentin (NEURONTIN) 100 mg capsuleIndications :Lumbar post-laminectomy syndrome,Lumbosacr al radiculopathy Take 1 capsule (100 mg total) by mouth 3 (three) times a day 90 capsule 11 5 Active amitriptyline (ELAVIL) 50 mg tabletIndications: Lumbar post-laminectomy syndrome,Lumbar radiculopathy,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 Take 1 tablet (50 mg total) by mouth nightly 30 tablet 11 5 Active HYDROcodone-acetam inophen (NORCO) 7.5-325 mg per tabletIndications: Pain Take 1 tablet by mouth every 8 (eight) hours as needed for pain 90 tablet 5 Active HYDROcodone-acetam inophen (NORCO) 7.5-325 mg per tabletIndications: Pain Take 1 tablet by mouth every 8 (eight) hours as needed for pain 90 tablet 5 01/10/20 25 Active Active Problems Problem Noted Date Diagnosed Date [...] further eval by movement disorders center at [facility], patient will consider group home prescription opiate use 08/21/2017 BMI 24.0-24.9, adult [...] Encounters Date Type Department Care Team Description 11/02/2024 1:51 PM CDT - 11/02/2024 11:59 PM CDT Hospital Encounter [facility] [address] [place] [address] Vinnie Amaral NP Lumbar radiculopathy (Primary Dx); Chronic pain syndrome; Spondylosis of lumbar region without myelopathy or radiculopathy; Lumbar post-laminectomy syndrome Discharge Disposition: Discharge to home or self care from Last 3 Months Immunizations Immunization Administration [...] on file Legal Sex Female 1:19 AM CAFE HELPER Gender Identity Not on file Sexual Orientation [...] Sign Reading Time Taken Comments Blood Pressure 127/79 11/02/2024 1:58 PM CDT Pulse 95 11/02/2024 1:58 PM CDT Temperature 36.6 C (97.9 F) 05/01/2021 1:44 PM CAFE HELPER Respiratory Rate 18 11/02/2024 1:58 PM CDT Oxygen Saturation 93% 11/02/2024 1:58 PM CDT Inhaled Oxygen Concentration - - Weight 55.3 kg (122 lb) 04/15/2024 1:03 PM CAFE HELPER Height 166.4 cm (5' 5.5) 04/15/2024 1:03 PM CAFE HELPER Body Mass Index 19.99 04/15/2024 1:03 PM CAFE HELPER Plan of Treatment Health Maintenance Due Date Last Done Comments Hepatitis B Screening 07/23/1963 DTaP/Tdap/Td Vaccine (1 - Tdap) 03/12/2013 3, 03/11/2013 Zoster Vaccine (2 of 3) 05/06/2013 03/11/2013, 03/11 Osteoporosis Screening-Bone Density Scan 03/27/2014 03/27/2012, 03/27/2012 Depression Screening 11/14/2019 11/13/2018, 11/13/2018, 07/09/2018, Additional history exists Colon Cancer Screening-DNA Stool 08/04/2021 08/05/19 Influenza Vaccine (#1) 2024 , 01/04/2019, 02/05/2018, Additional history exists Well Visit 65+ 04/15/2025 04/15/2024, 06/2023, 03/02/2021, Additional history exists Fall Risk Assessment 11/02/2025 11/02/2024, 07/09/2018, 06/17/2017 Hepatitis C Screening Completed 06/17/2017 [...] provide support. Medical Devices Implanted Type Area Field Appraiser Device Identifier Shelf Expiration Date Model / Serial / Lot Kit Stimulator Octrode L60 Cm Trial Lead Neurostimulator - [id number] Implanted:Qty: 1 on 04/02/2017 by Agus Adams MD at [facility] 3086 / / Kit Stimulator Octrode L60 Cm Trial Lead Neurostimulator - [id number] Implanted:Qty: 1 on 04/02/2017 by Agus Adams MD at [facility] 2 [facility] 3086 / / Procedures Procedure Name Priority Date/Time Associated Diagnosis Comments SCREENING MAMMOGRAM BILATERAL W SEAMUS Schedule Routine, Read Routine (OP Routine) 04/15/2024 1:43 PM CAFE HELPER Encounter for screening mammogram for malignant neoplasm of breast STOOL DNA COLOGUARD Routine 08/04/2018 HEPATITIS C ANTIBODY Routine 06/17/2017 12:06 PM CDT Annual physical exam Screening for viral disease HM DEXA SCAN Routine 03/27/2012 from Last 3 Months or Most Recently Relevant to Health Maintenance Results * Screening Mammogram Bilateral W Seamus (04/15/2024 1:43 PM CAFE HELPER) Anatomical Region Laterality Modality Breast Bilateral Mammography 04/15/2024 1:57 PM CAFE HELPER Impressions 04/15/2024 1:57 PM CAFE HELPER There is no mammographic evidence of malignancy. A 1 year screening mammogram is recommended. BI-RADS: 2 - Benign. The patient has been or will be contacted. The patient will be entered into a reminder system with a target due date of 1 year for her next mammogram. Electronically signed by: Viral Del Cid M.D. Narrative 04/15/2024 1:57 PM CAFE HELPER EXAMINATION: SCREENING MAMMOGRAM BILATERAL W SEAMUS ORDERING [...] PM CDT) Hep C Ab Negative Negative [facility] Blood specimen (specimen) 06/17/2017 12:06 PM CDT 06/17/2017 3:05 PM CDT Narrative [facility] - 06/17/2017 4:49 PM CDT Yelitza Pollock MD LAB MICROBIOLOGY - GENERA L ORDERABLES Edited Result - Final DEVONTE [id number] [facility] [place] [address] * DEXA SCAN (03/27/2012) DEXA Scan Normal Vidhya Woods MD HEALTH MAINTENANCE Final Result from Last 3 Months or Most Recently Relevant to Health Maintenance Insurance [facility] MEDICARE ADVANTAGE MEDICARE AETNA MEDICARE GOLD AETNA MEDICARE GOLD Care Teams Warranty Administrator Relationship Specialty Start [place] [address] [address] PCP - General 07/26/20 [place] [address] [address] 06/21/[place] [address] [address] [address] Registered Nurse 04/09/17 [place] [address] [address] Registered Nurse 04/14/17 Margareth Aguirre LPN Patient Business Services Tech 05/01/17 Lucie Whittington RN Registered Nurse 05/19/18
--- OUTSIDE RECORDS SUMMARY | 2024-12-24 09:38 | XMS_ITS | Encounter Summary ---
Author Organization [facility] Address [address] [place] [address] Phone Care Team Providers Care Pool Player Name Role Phone Yelitza Pollock MD Unavailable [phone] Yelitza Pollock MD Primary Care Provider [phone] Any June RN Unavailable UnavailAny Wilcox RN Unavailable Unavaila Margareth Melton LPN Unavailable Unavailable Lucie Whittington RN Unavailable Unavailab Yelitza Krishna MD Primary Care Provider [phone] Encounter Details Date Type Department Care Team (Late st Contact Info) Description 06/17/[address] 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 Gender Identity Not on file Sexual Orientation [...] on filedocumented in this encounter Care Teams Pool Player Relationship Specialty Start [place] [address] [address] PCP - General Family Medicine 02/27/17 06/29/20 [place] [address] [address] PCP - General 07/26/20 [place] [address] [address] 06/21/16 Any June, BLANKA [address] [address] Registered Nurse 04/09/[place] [address] [address] Registered Nurse 04/14/17 Margareth Aguirre LPN Patient Slunk Skin Curer 05/01/17 Lucie Whittington RN Registered Nurse 05/19/18 documented as of this encounter
[2024-12-24 09:52] LABS: Hematocrit 43.2 % (37.0-47.0); Hemoglobin 13.8 g/dL (12.0-15.0); Mean Corpuscular HGB Conc 31.9 g/dl (32-36); Mean Corpuscular Hemoglobin 29.5 pg (26-34); Mean Corpuscular Volume 92.3 fl (80-100); Platelet Count Result 399 k/mm3 (150-375); Red Blood Count 4.68 M/mm3 (4.2-5.4); White Blood Count 6.8 K/mm3 (4.5-10.0)
[2024-12-24 10:11] LABS: Alanine Aminotransferase 33 U/L (6-35); Albumin Level 4.2 g/dL (3.5-5.1); Alkaline Phosphatase 80 U/L (38-126); Anion Gap 6 mmol/L (4-12); Aspartate Amino Transferase 39 U/L (14-36); Bilirubin,Total 0.9 mg/dL (0.2-1.3); Blood Urea Nitrogen 19 mg/dL (7-17); Calcium 9.2 mg/dL (8.4-10.2); Carbon Dioxide 29 mmol/L (22-30); Chloride 100 mmol/L (98-107); Cholesterol 157 mg/dL (0-200); Estimated Glomerular Filt Rate > 60; Glucose 109 mg/dL (65-110); HDL Direct 70 mg/dL; Potassium 4.2 mmol/L (3.4-5.0); Sodium 135 mmol/L (137-145); Total Protein 8.0 g/dL (6.3-8.2); Triglycerides 71 mg/dL (<150)
== END 2024-12-24 09:30 | disposition home or self-care (01) ==
PROVIDERS: PCP Nurse Practitioner Family; Visit Provider Nurse Practitioner Family
DX: E78.5 Hyperlipidemia, unspecified (principal); I10 Essential (primary) hypertension; M85.852 Other specified disorders of bone density and structure, left thigh; E67.3 Hypervitaminosis D; R74.01 Elevation of levels of liver transaminase levels; M72.0 Palmar fascial fibromatosis [Dupuytren]; M51.35 Other intervertebral disc degeneration, thoracolumbar region; Z72.0 Tobacco use
CPT/HCPCS: 36415; 80053; 80061; 82306; 85027

== ENCOUNTER 2025-02-04 12:29 | Outpatient (CLI) | payer MEDICARE, SELFPAY ==
--- NOTE | ~2025-02-04 | DEXA_ITS ---
Bone Density Report Name: ANAYA WATTS Age: 79 Sex: Female Ethnicity: White Date of : 1945 Indication: osteopenia; height loss; Referring Provider: JEANCARLOS OCHOA Study: Bone densitometry was performed. Exam Date: February 04, 2025 Accession number: [id number] Bone Density: Region BMD T-score Z-score Classification AP Spine(L2, L3, L4) 0.991 -0.8 1.9 Normal Femoral Neck (Left) 0.833 -0.1 2.1 Normal Total Hip (Left) 0.715 -1.9 0.2 Osteopenia Femoral Neck (Right) 0.825 -0.2 2.1 Normal Total Hip (Right) 0.787 -1.3 0.8 Osteopenia Total Hip Mean 0.751 -1.6 0.5 Osteopenia World Health Organization criteria for BMD impression classify patients as: Normal (T-score at or above -1.0), Osteopenia (T-score between -1.0 and -2.5), or Osteoporosis (T-score at or below -2.5). 10-year Fracture Risk(1): Major Osteoporotic Fracture 7.7% Hip Fracture 1.9% Reported Risk Factors: [place] (), Neck BMD=0.825, BMI=19.7, smoking (1) FRAX(R) Version 3.08. Fracture probability calculated for an untreated patient. Fracture probability may be lower if the patient has received treatment. Previous Exams: -- Region Exam Age BMD T-score BMD Change BMD Change Date g/cm2 vs Baseline vs Previous -- Total Hip(Left) 02/04/2025 79 0.715 -1.9 -11.8%* -11.8%* 06/08/2020 74 0.811 -1.1 Total Hip(Right) 02/04/2025 79 0.787 -1.3 -7.0%* -7.0%* 06/08/2020 74 0.846 -0.8 -- *Denotes significance at 95% confidence level, LSC for Total Hip = 0.027 g/cm2 Clinical Information Provided by Patient: Smokes Has used the following medications: HRT (i.e. estrogen/hormone therapy), Vitamin D, Calcium Patient maximum height was 67 Menopause Age: 44 No regular weight bearing exercise Onset of menses at age 13 Number of children 2 Impression: The patient has low bone mass, based on the Left Total Hip T-score. The patient has an estimated ten-year risk of hip fracture of 1.9% and an estimated ten-year risk of major fracture of 7.7%, based on the WHO FRAX algorithm. The patient has risk factors, including: smoking. The BMD for the Total Hip(Left) decreased, changing by -11.8% since the last DXA exam. The BMD for the Total Hip(Right) decreased, changing by -7.0% since the last DXA exam. Discussion: BONE DENSITY IS LOW AT ONE OR MORE SKELETAL SITES. This patient's lowest T-score is low at one or more skeletal sites. It meets the World Health Organization's (WHO) criteria for ?low bone mass? (T-score between -1.0 and -2.5). The patient's 10-year risk of fracture as calculated by FRAX is less than the threshold where pharmacological therapy is recommended by the National Osteoporosis Foundation (NOF). However, all treatment decisions require clinical judgment and consideration of individual patient factors, including patient preferences, comorbidities, previous drug use, risk factors not captured in the FRAX model (e.g., frailty, falls, vitamin D deficiency, increased bone turnover, interval significant decline in bone density) and possible under or overestimation of fracture risk by FRAX. The patient should follow a healthful lifestyle (good nutrition with adequate calcium and vitamin D, and appropriate weight-bearing exercise). Follow-Up: Consider repeating this study in 2 years to reassess this patient's status, or sooner if there is some new clinical indication. Reported by: CASIMIRO on 02/04/2025 12:51:00 PM. Reviewed, dictated and finalized at location A.
== END 2025-02-04 12:30 | disposition home or self-care (01) ==
LOC: MICIMG 12:29
PROVIDERS: PCP Nurse Practitioner Family; Visit Provider Nurse Practitioner Family
DX: Z78.0 Asymptomatic menopausal state (principal); M85.852 Other specified disorders of bone density and structure, left thigh; M85.851 Other specified disorders of bone density and structure, right thigh
CPT/HCPCS: 77080